=== PATIENT | female | born 1955 | race Caucasian/White ===

== ENCOUNTER 2016-05-05 16:01 | Emergency (ER) | payer BC ==
[2016-05-05 16:08] VITALS: RESP 18
[2016-05-05] MEDS ORDERED: HYDROcodone/APAP 5-325MG 1 EACH TAB PO STA (16:32)
--- NOTE | 2016-05-05 16:40 | XR ---
EXAMINATION TYPE: XR wrist limited LT DATE OF EXAM: 05/05/2016 4:35 PM CLINICAL HISTORY: Left wrist pain after fall injury. TECHNIQUE: Frontal and lateral images of the left wrist are obtained. COMPARISON: None FINDINGS: Osseous structures are demineralized. There is acute comminuted impacted intra-articular fr acture through distal radial meta-epiphysis. There is impaction and abnormal volar displacement of di stal fracture fragment. There is acute comminuted minimally displaced intra-articular fracture of the distal ulnar epiphysis. The carpal joint spaces are preserved. The overlying soft tissue appears un remarkable. IMPRESSION: There are acute comminuted fractures of distal radius and ulna with some displacement id entified. (Initial encounter close type post traumatic fracture)
[2016-05-05] MEDS ORDERED: MORPHINE SULFATE 4 MG/ML SYRINGE IVP STA (17:43)
[2016-05-05] MEDS ORDERED: BUPIVACAIN-EPI 0.5%-1:200,000 30 ML VIAL SQ ONE (17:45)
[2016-05-05] MEDS ORDERED: MORPHINE SULFATE 10 MG/ML SYRINGE IVP STA (17:47)
--- NOTE | 2016-05-05 19:14 | XR ---
EXAMINATION TYPE: XR wrist complete LT DATE OF EXAM: 05/05/2016 7:02 PM COMPARISON: NONE HISTORY: Post reduction TECHNIQUE: 2 views FINDINGS: There are transverse fractures of the distal radius and ulna. There is impaction of the rad ius fracture with posterior angulation on the lateral view of the distal radius. There is no dislocat ion. IMPRESSION: Distal radius and ulna fractures with mild angulation of the radius fracture. There is no t a significant change compared to the exam at 4:30 PM today. There is good apposition of the fragmen ts.
--- NOTE | 2016-05-05 19:47 | ED ---
Upper Extremity HPI - General Chief Complaint: Extremity Injury, Upper Stated Complaint: Fall/arm pain/lightheaded Time Seen by Provider: 05/05/16 16:13 Source: patient Mode of arrival: ambulatory Limitations: no limitations - History of Present Illness Initial Comments: 61-year-old female presented for evaluation of left wrist pain after falling from standing onto outstretched arms. She states that she was walking out of the building and was reading some papers when she tripped and fell forward. She stretched out her hands to catch her fall resulting in a popping sensation in her left forearm just proximal to the wrist. She denies hitting her head or injuring her neck or back. She was able to get back up to her feet on her own and walked home. She maintains sensation and motor function distal to the deformity. - Related Data Home Medications Medication Instructions Recorded Confirmed Diltiazem Cd [Cardizem Cd] 180 mg PO HS 11/28/13 05/05/16 Albuterol Sulfate [Proair Hfa] 2 puff INHALATION RT-QID PRN 12/25/14 05/05/16 Desvenlafaxine Succinate [Pristiq 100 mg PO HS 12/25/14 05/05/16 ER] Fexofenadine HCl [Selina Allergy] 180 mg PO DAILY 12/25/14 05/05/16 Montelukast [Singulair] 10 mg PO HS 12/25/14 05/05/16 traZODone HCL [Desyrel] 50 mg PO HS 12/25/14 05/05/16 Cholecalciferol [Vitamin D3] 2,000 unit PO DAILY 03/23/15 05/05/16 Fluticasone/Salmeterol [Advair 1 puff INHALATION RT-BID 03/23/15 05/05/16 250-50 Diskus] [place]-3 Fatty Acids/Fish Oil [Fish 1 cap PO DAILY 03/23/15 05/05/16 Oil 1,000 mg Softgel] Dicyclomine [Bentyl] 20 mg PO ACHS 05/05/16 05/05/16 Estradiol Cream [Estrace Cream 1 gm VAGINAL MOFR 05/05/16 05/05/16 0.01%] Nystatin [Nystop] 1 applic TOPICAL TID 05/05/16 05/05/16 SUMAtriptan SUCCINATE [Imitrex] 100 mg PO BID PRN 05/05/16 05/05/16 Triamcinolone 0.1% Cream [Kenalog] 1 applic TOPICAL BID 05/05/16 05/05/16 Previous Rx's Medication Instructions Recorded HYDROcodone/APAP 5-325MG [[place] 1 - 2 tab PO Q6HR PRN #14 tab 05/05/16 5-325] Ibuprofen [Motrin] 800 mg PO Q8HR PRN #20 tab 05/05/16 Allergies Allergy/AdvReac Type Severity Reaction Status Date / Time NARCOTICS AdvReac Nausea & Uncoded 05/05/16 16:24 Vomiting Review of Systems ROS Statement: Those systems with pertinent positive or pertinent negative responses have been documented in the HPI. ROS Other: All systems not noted in ROS Statement are negative. Constitutional: Denies: fever, chills Eyes: Denies: eye pain, eye discharge ENT: Denies: ear pain, throat pain Respiratory: Denies: cough, dyspnea Cardiovascular: Denies: chest pain, palpitations Endocrine: Denies: polydipsia, polyuria Gastrointestinal: Denies: abdominal pain, nausea, vomiting Genitourinary: Denies: urgency, dysuria Musculoskeletal: Reports: other (Pain and deformity to the left distal forearm/ wrist). Denies: back pain Skin: Reports: lesions (Abrasion to left distal forearm on the dorsal aspect). Denies: rash Neurological: Denies: headache, weakness Psychiatric: Denies: anxiety, depression Past Medical History Past Medical History: Asthma, Eye Disorder, Hyperlipidemia, Hypertension, Osteoarthritis (OA) Additional Past Medical History / Comment(s): ENVIRONMENTAL ALLERGIES, GETS WEEKLY INJ. HX CATARACTS. HX: migraine; IBS; varicose veins joel. LT KNEE STIFFNESS, SOME EDEMA - HAD TOTAL KNEE SURG 01/07/16 History of Any Multi-Drug Resistant Organisms: None Reported Past Surgical History: Adenoidectomy, Joint Replacement, Orthopedic Surgery, Tonsillectomy, Tubal Ligation Additional Past Surgical History / Comment(s): 01/06/15 Total L knee arthroplasty. Jaw Surgery; CATARACTS; ORIF rt wrist, left knee arthroscopy Past Anesthesia/Blood Transfusion Reactions: Postoperative Nausea & Vomiting ( PONV) Additional Past Anesthesia/Blood Transfusion Reaction / Comment(s): MOTHER HAD POSS PROB, UNSURE WHAT. Past Psychological History: Depression Additional Psychological History / Comment(s): Pt resides with her spouse. She is independent. She uses no assistive device. She drives. She is seeing a psychiatrist for her depression and is on medication-she feels these things are helping. Smoking Status: Never smoker Past Alcohol Use History: Occasional Past Drug Use History: None Reported - Past Family History Father Family Medical History: Cancer Mother Family Medical History: Cancer General Exam Limitations: no limitations General appearance: alert, in no apparent distress Head exam: Present: atraumatic, normocephalic Eye exam: Present: normal appearance, EOMI ENT exam: Present: normal exam, normal oropharynx Neck exam: Present: normal inspection. Absent: tenderness Respiratory exam: Present: normal lung sounds bilaterally. Absent: respiratory distress, wheezes Cardiovascular Exam: Present: normal rhythm, bradycardia GI/Abdominal exam: Present: soft. Absent: distended, tenderness Rectal exam: Present: deferred Extremities exam: Present: other (Deformity to the left distal forearm/wrist with volar displacement. Sensation, motor function, and pulse present distal to the injury capillary refill less than 3 seconds.) Back exam: Present: normal inspection, full ROM Neurological exam: Present: alert, oriented X3, normal gait Psychiatric exam: Present: normal affect, normal mood Skin exam: Present: warm, dry, other (Abrasion to left distal medial volar aspect of forearm) Course Vital Signs 05/05/16 05/05/16 16:05 20:08 Temperature 97.0 F L 97.9 F Pulse Rate 55 L 104 H Respiratory 18 18 Rate Blood Pressure 96/52 140/69 O2 Sat by Pulse 94 L 96 Oximetry Procedures - Nerve Block Consent Obtained: verbal consent Time Out Performed: Yes Local Anesthetic Used: MARCAINE 0.5% with EPI Amount of anesthesia used: 15 Side: left Nerve Blocks: hematoma block Procedure Successful: Yes Complications: none Patient Tolerated Procedure: well - Orthopedic Joint Reduction Joint #1 Consent Obtained: verbal consent Time Out Performed: Yes Side: left Joint Reduction Location: wrist Analgesia: hematoma block Local Anesthetic Used: other anesthetic (Marcaine) Amount of Anesthetic Used (mLs): 15 Technique Used: direct manipulation, other (Hanging finger traction) Post-Reduction Neuro Exam: intact Post-Reduction Vascular Exam: intact Post Reduction X-Ray Obtained: Yes Post Reduction X-Ray Results: other (Minimal-change appear to previous study) Splint Applied: Yes Patient Tolerated Procedure: well - Orthopedic Splinting/Casting Injury #1 Side: left Upper Extremity Injury Location: forearm, wrist Upper Extremity Immobilizer: volar splint Medical Decision Making - Medical Decision Making 61-year-old female presented for evaluation of left distal forearm/ wrist injury resulting in deformity. Motor, sensation, and pulse are intact distal to the injury with a palpable pulse. X-ray confirms a volar displaced radial and ulnar fracture. Discussed the patient with the on-call orthopedic surgeon who requested that an attempt be made to reduce the fracture and to have a splint with follow-up in the morning. He further stated that she would likely have surgical repair on Monday. Patient was given pain control as well as a hematoma block and arm was placed in a finger traction splint. There was improvement in the deformity with traction and while the arm was maintained in traction a volar splint was applied without complication. Repeat x-ray showed minimal improvement in displacement. The patient was given prescription for pain control and advised to call the orthopedic surgeon in the morning and schedule an appointment for the same day. She is further informed that she would likely have surgical repair on Monday. She was advised to return to this facility if her symptoms should worsen or persist. She acknowledged an understanding of this information and agreed with this plan of care. Disposition Clinical Impression: Distal radius fracture, left, Fracture of distal end of left ulna Disposition: HOME SELF-CARE Condition: Stable Instructions: Arm Fracture in Adults (ED) Additional Instructions: Please use medication as discussed. Please follow up with the provided orthopedic surgeon tomorrow morning after 8:30 AM. Please return to the emergency room if your symptoms increase or worsen or for any other concerns. Prescriptions: HYDROcodone/APAP 5-325MG [[place] 5-325] 1 - 2 tab PO Q6HR PRN #14 tab PRN Reason: Analgesia Ibuprofen [Motrin] 800 mg PO Q8HR PRN #20 tab PRN Reason: Analgesia Referrals: Daniela Manrique III, MD [Primary Care Provider] - 1-2 days Ray Caceres DO [Doctor of Osteopathic Medicine] - 1-2 days Time of Disposition: 19:47
[2016-05-05 20:11] VITALS: BP 140/69; PULSE 104; TEMP 97.9
== END 2016-05-05 20:26 | disposition home or self-care (01) ==
LOC: EC 16:01
DX: S52.502A Unspecified fracture of the lower end of left radius, initial encounter for closed fracture (principal); W01.0XXA Fall on same level from slipping, tripping and stumbling without subsequent striking against object, initial encounter; Y93.01 Activity, walking, marching and hiking; K58.9 Irritable bowel syndrome, unspecified; I10 Essential (primary) hypertension; E78.5 Hyperlipidemia, unspecified; J45.909 Unspecified asthma, uncomplicated; F32.9 Major depressive disorder, single episode, unspecified; Z79.890 Hormone replacement therapy; Z79.51 Long term (current) use of inhaled steroids; Z88.5 Allergy status to narcotic agent
CPT/HCPCS: 73100; 73110; 25605; 99283; 96374; J2270

== ENCOUNTER → 2016-05-06 | Outpatient (CLI) | payer BC ==
[2016-05-06 16:01] LABS: EKG EKG PERFORMED
[2016-05-06 16:27] LABS: Anion Gap 12 mmol/L; Carbon Dioxide 24 mmol/L (22-30); Chloride 105 mmol/L (98-107); Potassium 3.9 mmol/L (3.5-5.1); Sodium 141 mmol/L (137-145)
[2016-05-06 16:31] LABS: Basophils # (A) 0.1 k/uL (0-0.2); Basophils % (A) 1 %; CH 29.9; CHCM 33.1; Eosinophils # (A) 0.1 k/uL (0-0.7); Eosinophils % (A) 1 %; HCT 41.9 % (34.0-46.0); HDW 2.27; HGB 13.7 gm/dL (11.4-16.0); Luc # (Auto) 0.14; Luc % (Auto) 1; Lymphocytes # (A) 1.5 k/uL (1.0-4.8); Lymphocytes % (A) 16 %; MCH 29.8 pg (25.0-35.0); MCHC 32.8 g/dL (31.0-37.0); MCV 90.8 fL (80.0-100.0); Mean Platelet Volume 8.8; Monocytes # (A) 0.4 k/uL (0-1.0); Monocytes % (A) 4 %; Neutrophils # (A) 7.5 k/uL (1.3-7.7); Neutrophils % (A) 77 %; RBC 4.61 m/uL (3.80-5.40); RDW 13.1 % (11.5-15.5); WBC 9.7 k/uL (3.8-10.6); WBC (Perox) 9.83
== END | disposition home or self-care (01) ==
LOC: LABPAT 15:35
PROVIDERS: ATTEND Orthopaedic Surgery
DX: Z01.810 Encounter for preprocedural cardiovascular examination (principal); S52.572D Other intraarticular fracture of lower end of left radius, subsequent encounter for closed fracture with routine healing
CPT/HCPCS: 80051; 85025; 93005

== ENCOUNTER 2016-05-09 13:44 | Day surgery (SDC) | payer BC ==
--- NOTE | 2016-05-09 11:57 | HP ---
DATE OF ADMISSION: CHIEF COMPLAINT: Left wrist pain. HISTORY OF PRESENT ILLNESS: The patient is a 61-year-old female who presents after falling on 05/05/2016 in front of a [place] [place] store landing on her left arm. She initially was seen in the emergency room and underwent provisional closed reduction of her left wrist fracture and was placed into a splint. She denies previous problems or injury. PAST MEDICAL HISTORY: Significant for asthma, and arthritis. PAST SURGICAL HISTORY: Significant for sinus surgery, tubal ligation and left knee arthroscopy with subsequent total knee arthroplasty. CURRENT MEDICATIONS: Ibuprofen. She denies drug allergies. FAMILY HISTORY: Significant for cancer. SOCIAL HISTORY: Negative for current tobacco or alcohol use. Sixteen-point review of systems otherwise reviewed and is noncontributory. On examination, the patient is approximately 5 feet 4 inches, 170 pounds of mesomorphic habitus. HEENT exam is nonfocal. Neck is supple. She is nontender about the left shoulder and elbow. On examination of her left wrist, she has moderate swelling and ecchymosis. She has volar deformity. She is tender over the distal radius and ulna. Her distal neurovascular exam appears be intact in the left digits. She has moderate digital stiffness and swelling. X-rays obtained in the hospital of the left wrist show an intra-articular distal radius fracture with volar displacement along with an ulnar neck/styloid fracture that is mildly displaced. IMPRESSION: Left distal radius and ulnar neck/styloid fractures. RECOMMENDATIONS: I talked to the patient regarding her treatment options. With this fracture pattern and initial displacement I would recommend proceeding with surgery. We will plan to proceed with open reduction and internal fixation. We will likely keep the patient for a 23 hour hold postoperatively.
[~2016-05-09 13:44] MED LIST: ceFAZolin 2 GM in SODIUM CHLORIDE 0.9% 100 ML IVPB ONE
[2016-05-09] MEDS ORDERED: DEXAMETHASONE SOD PHOSPHATE 10 MG/ML 1 ML VIAL IV ONE (14:15)
[2016-05-09] MEDS ORDERED: HYDROmorphone 1 MG/ML 1 ML SYRINGE IVP PRN ×2 (14:15→19:20)
[2016-05-09] MEDS ORDERED: LACTATED RINGERS 1,000 ML IV ONE (14:15)
[2016-05-09] MEDS ORDERED: MIDAZOLAM 2 MG/2 ML VIAL IV PRN (14:15)
[2016-05-09] MEDS ORDERED: LIDOCAINE 1% 20 ML VIAL (10MG/ML) FOR IV START INTRADERMA PRN (14:15)
[2016-05-09] MEDS ORDERED: SCOPOLAMINE 1.5MG/72HR PATCH TRANSDERM ONE (14:15)
[2016-05-09] MEDS ORDERED: ONDANSETRON 4 MG/2 ML VIAL IVP ONE (14:15)
[2016-05-09] MEDS ORDERED: LIDOCAINE 1% 20 ML VIAL (10MG/ML) FOR IV START INTRADERMA ONE (14:26)
[2016-05-09] MEDS ORDERED: fentaNYL (PF) 50 MCG/ML 2 ML AMP ONE (17:57)
[2016-05-09] MEDS ORDERED: SUCCINYLCHOLINE CHLORIDE 100 MG/5 ML SYR IV ONE (17:57)
[2016-05-09] MEDS ORDERED: PROPOFOL 10 MG/ML 20 ML VIAL IV ONE (17:57)
[2016-05-09] MEDS ORDERED: LABETALOL 5 MG/ML VIAL MDV ONE (17:57)
[2016-05-09] MEDS ORDERED: MIDAZOLAM 2 MG/2 ML VIAL ONE (17:57)
[2016-05-09] MEDS ORDERED: HYDROmorphone (PF) 1 MG/ML ONE (17:57)
[2016-05-09] MEDS ORDERED: LIDOCAINE 1% INJ 10MG/ML (20 ML MDV) ONE (17:57)
[2016-05-09] MEDS ORDERED: ceFAZolin 1,000 MG in SODIUM CHLORIDE 0.9% 1,000 ML IRRIGATION ONE (18:32)
[2016-05-09] MEDS ORDERED: ONDANSETRON 4 MG/2 ML VIAL IVP PRN (19:20)
[2016-05-09] MEDS ORDERED: HYDROcodone/APAP 5-325MG 1 EACH TAB PO PRN (19:20)
--- NOTE | 2016-05-09 19:22 | P.OP ---
Date of Procedure: 05/09/16 Preoperative Diagnosis: Displaced left intra-articular distal radius fracture Postoperative Diagnosis: Same Procedure(s) Performed: Open reduction and internal fixation left intra-articular distal radius fracture Implants: [place] 3-hole volar distal radial plate Anesthesia: CLYDE Surgeon: Chris Urias Weld Technician #1: Reilly Diez Estimated Blood Loss (ml): 10 Pathology: none sent Condition: stable Disposition: PACU Indications for Procedure: The patient's 61-year-old female presents after falling injuring her left wrist. Upon evaluation she was noted have a closed volarly displaced intra- articular left distal radius fracture. A discussion of the risks and benefits of operative intervention was made with patient. She opted to proceed with surgery. Operative risks to include infection, neurovascular injury, development of blood clots, possible development of malunion, possible development of nonunion, possible need for subsequent procedures was discussed. Informed consent was obtained. Operative Findings: As below Description of Procedure: The patient was brought to the operating room, and after induction of general anesthesia the left upper extremity was prepped and draped in normal fashion. The tourniquet was inflated to 250 mmHg. A longitudinal incision extending 6 cm was then made starting at the volar wrist crease in line with the flexor carpi radialis extending proximally. The skin was incised sharply. Subcu tissues were divided bluntly. Electrocautery was used for hemostasis. The flexor carpi radialis sheath was opened and the tendon retracted ulnarly. The radial artery was gently retracted radially. The underlying fascia was opened. The palmaris brevis was elevated off the volar distal radius. The fracture site was identified and cleaned of clot and debris. The fracture was then provisionally reduced with longitudinal traction and manipulation. A 3 hole volar plate was then placed. It was attached proximally provisionally with an olive wire. Fluoroscopy was used to check the adequacy reduction and placement of the implant. A 2.4 mm cortical screw was placed proximally in the slotted hole. The proximal and distal rows were then filled with smooth pegs of the appropriate length. This was again was done with the aid of fluoroscopy. The remaining cortical screw holes were filled with the appropriate length screws. Final fluoroscopic views to include PA, AP, and elevated lateral view showed adequate reduction of the fracture and yarsanism of volar tilt. The wound was irrigated normal saline. The subcutaneous tissues reapproximated interrupted 3-0 Vicryl sutures. The skin was reapproximated with 4-0 subcuticular Prolene suture. Steri-Strips were applied. A sterile dressing was applied in addition to a volar splint. The tourniquet was deflated with less than 1 hour total tourniquet time. The patient was awoken from general anesthesia and transferred to recovery room in good condition. Blood loss was estimated at 10 mL. No complications were incurred. Sponge and needle counts were correct in the case.
[2016-05-09] MEDS: HYDROcodone/APAP 5-325MG 1 EACH TAB PO PRN (20:13)
[2016-05-09 21:00] VITALS: BMI 27.4
[2016-05-09] MEDS: ceFAZolin 2 GM in SODIUM CHLORIDE 0.9% 100 ML IVPB SCH (23:56)
[2016-05-10] MEDS ORDERED: ceFAZolin 2 GM in SODIUM CHLORIDE 0.9% 100 ML IVPB ONE (05:00)
[2016-05-10] MEDS: HYDROcodone/APAP 5-325MG 1 EACH TAB PO PRN (06:03)
[2016-05-10 07:47] VITALS: BP 137/67; PULSE 108; RESP 18; TEMP 98.6
[2016-05-10] MEDS: ceFAZolin 2 GM in SODIUM CHLORIDE 0.9% 100 ML IVPB SCH (08:13)
--- NOTE | 2016-05-10 09:11 | FL ---
EXAMINATION TYPE: FL guidance operating room DATE OF EXAM: 05/09/2016 7:21 PM HISTORY: Flouroscopy time 40 seconds of fluoroscopy provided. IMPRESSION: 1. Fluoroscopy time.
--- NOTE | 2016-05-10 10:17 | XR ---
EXAMINATION TYPE: XR wrist limited LT DATE OF EXAM: 05/09/2016 7:21 PM COMPARISON: 05/05/2016 HISTORY: Postoperative change TECHNIQUE: One view submitted FINDINGS: Postsurgical change appears in near-anatomic alignment. IMPRESSION: Postoperative change
--- NOTE | 2016-05-10 10:43 | P.DS ---
Providers Date of admission: 05/09/2016 Expected date of discharge: 05/10/16 Attending physician: Chris Urias Primary care physician: Stated None Hospital Course: Date of admission: 05/09/2016 Date of discharge: 05/10/2016 Admission diagnosis: Status post ORIF left distal radius fracture Discharge diagnosis: Same Attending physician: Dr. Urias Surgical procedures: ORIF left distal radius fracture Brief history: Patient is a 61-year-old female who was seen and evaluated in the outpatient setting by Dr. Urias with regards to the left distal radius fracture. It was determined that surgical fixation would be the best option for treatment, she was scheduled for an ORIF procedure on 05/09/2016 Hospital course: Details of patient's surgery can be found in operative report. Patient tolerated the procedure well and was subsequently transported to orthopedic floor. Patient's orthopeidc and medical care was provided daily. Patient had daily laboratory tests performed for evaluation of overall blood counts. Patient was treated with aspirin for their postoperative DVT prophylaxis during their inpatient stay. Patient was noted to have a relatively uneventful postoperative course. Patient reported satisfactory pain control with oral pain medications by postoperative day 0. Patient showed satisfactory progress with physical therapy. Patient moved steadily through the program and had no difficulty meeting the goals by postoperative day 1. Given patient's otherwise satisfactory course and having met physical therapy goals, plan is to discharge patient home on postoperative day 1. Discharge condition/disposition: Patient will be discharged home in stable condition. Discharge medications: Instructions are given on resumption of patient's normal daily medications per primary care recommendation, in addition patient will be prescribed [place] 5 mg/325 mg. Discharge instructions: 1. Keep splint clean and dry, do not remove. Please keep covered while showering 2 nonweightbearing left upper extremity, use arm sling as needed. 3. Ice and elevate when necessary. Do not exceed 20 minutes per hour with ice pack. 4. Utilize compression sleeve until seen at first follow up appointment. 5. Pain meds and anticoagulants per prescription. 6. Pain medication has potential to cause constipation. Increase oral fluid and fiber intake. Contact primary care provider if you have not had a bowel movement within 48 hours after discharge 7. Follow up in office at 2 weeks postop with Arnulfo Diez PA-C 8. Follow up with your primary care doctor 7-10 days after discharge. 9. Contact [facility] with any questions, . Procedures: ORIF left distal radius fracture Patient Condition at Discharge: Good Plan - Discharge Summary New Discharge Prescriptions: Hydrocodone/Acetaminophen [[place] 5-325] 1 - 2 each PO Q6HR PRN #30 tab PRN Reason: Pain Discharge Medication List Diltiazem Cd [Cardizem Cd] 180 mg PO HS 11/28/13 [History] Albuterol Sulfate [Proair Hfa] 2 puff INHALATION RT-QID PRN 12/25/14 [History] Desvenlafaxine Succinate [Pristiq ER] 100 mg PO HS 12/25/14 [History] Fexofenadine HCl [Selina Allergy] 180 mg PO DAILY 12/25/14 [History] Montelukast [Singulair] 10 mg PO HS 12/25/14 [History] traZODone HCL [Desyrel] 50 mg PO HS 12/25/14 [History] Cholecalciferol [Vitamin D3] 2,000 unit PO DAILY 03/23/15 [History] Fluticasone/Salmeterol [Advair 250-50 Diskus] 1 puff INHALATION RT-BID 03/23/15 [History] [place]-3 Fatty Acids/Fish Oil [Fish Oil 1,000 mg Softgel] 1 cap PO DAILY [History] Dicyclomine [Bentyl] 20 mg PO ACHS 05/05/16 [History] Estradiol Cream [Estrace Cream 0.01%] 1 gm VAGINAL MOFR 05/05/16 [History] HYDROcodone/APAP 5-325MG [[place] 5-325] 1 - 2 tab PO Q6HR PRN #14 tab 05/05/16 [ Rx] Ibuprofen [Motrin] 800 mg PO Q8HR PRN #20 tab 05/05/16 [Rx] Nystatin [Nystop] 1 applic TOPICAL TID 05/05/16 [History] SUMAtriptan SUCCINATE [Imitrex] 100 mg PO BID PRN 05/05/16 [History] Triamcinolone 0.1% Cream [Kenalog] 1 applic TOPICAL BID 05/05/16 [History] Hydrocodone/Acetaminophen [[place] 5-325] 1 - 2 each PO Q6HR PRN #30 tab 05/10/16 [Rx] Follow up Appointment(s)/Referral(s): Branch,Reilly M, MARGIE [PHYSICIAN TRAVEL ADMINISTRATOR] - 05/27/16 1:30 pm Patient Instructions/Handouts: ORIF of an Arm Fracture (DC) Discharge Disposition: HOME SELF-CARE
--- NOTE | 2016-05-10 10:44 | P.PN ---
Subjective Principal diagnosis: s/p ORIF left distal radius fracture Patient doing well today, no complaints. Denies chest pain, shortness of breath , fever or chills. Objective - Vital Signs Vital signs: Vital Signs Temp 98.6 F 05/10/16 07:46 Pulse 108 H 05/10/16 07:46 Resp 18 05/10/16 07:46 BP 137/67 05/10/16 07:46 Pulse Ox 93 L 05/10/16 07:46 Intake & Output 05/09/16 05/10/16 05/10/16 18:59 06:59 18:59 Intake Total 501 0 240 Output Total 5 Balance 501 -5 240 Weight 72.575 kg 72.575 kg Intake: IV 501 0 Oral 240 Output: Estimated Blood Loss 5 Other: Voiding Method Toilet # Voids 1 1 - Exam Left upper extremity: Splint in good position. Sensation to all digits intact, cap refill is less then 2 seconds. Assessment and Plan Plan: Assessment: 1. Post op day #1 s/p ORIF left distal radius fracture Plan: 1. Pain control, she will be discharged home on [place] 5mg/325 2. Non weightbearing left upper extremity 3. Utilize arm sling as needed 4. Follow up at [facility] in 2 weeks Time with Patient: Less than 30
== END 2016-05-10 12:33 | disposition home or self-care (01) ==
LOC: OR 13:44 → 3OBS 19:17 → OR 05-10 12:33
PROVIDERS: ATTEND Orthopaedic Surgery
DX: S52.572A Other intraarticular fracture of lower end of left radius, initial encounter for closed fracture (principal); S52.512A Displaced fracture of left radial styloid process, initial encounter for closed fracture; W19.XXXA Unspecified fall, initial encounter; Y92.512 Supermarket, store or market as the place of occurrence of the external cause; J45.909 Unspecified asthma, uncomplicated; M19.90 Unspecified osteoarthritis, unspecified site; I10 Essential (primary) hypertension; E78.5 Hyperlipidemia, unspecified; F39 Unspecified mood [affective] disorder; Z79.1 Long term (current) use of non-steroidal anti-inflammatories (NSAID); Z79.891 Long term (current) use of opiate analgesic; Z79.51 Long term (current) use of inhaled steroids; Z79.899 Other long term (current) drug therapy
CPT/HCPCS: 73100; 25608; C1713; J1100; J0690 ×3; J2405

== ENCOUNTER 2016-11-02 08:55 | Day surgery (SDC) | payer BC ==
[2016-10-26 15:36] VITALS: BMI 27.9
[~2016-11-02 08:55] MED LIST changes: +LACTATED RINGERS 1,000 ML IV SCH; +TETRACAINE 0.5% OPHTH (PF) DROPS 4 ML BTL OP NR; -ceFAZolin 2 GM in SODIUM CHLORIDE 0.9% 100 ML IVPB ONE
[2016-11-02] MEDS: PILOCARPINE 2% OPHTH DROPS 15 ML BTL OP SCH ×3 (11:05→11:25)
[2016-11-02 11:34] VITALS: RESP 16; TEMP 97.2
[2016-11-02] MEDS ORDERED: ONDANSETRON 4 MG/2 ML VIAL IVP ONE (11:34)
[2016-11-02] MEDS ORDERED: fentaNYL (PF) 50 MCG/ML 2 ML AMP ONE (12:52)
[2016-11-02] MEDS ORDERED: MIDAZOLAM 2 MG/2 ML VIAL ONE (12:52)
[2016-11-02] MEDS ORDERED: diphenhydrAMINE 50 MG/ML 1 ML VIAL ONE (12:52)
[2016-11-02] MEDS ORDERED: PROPOFOL 10 MG/ML 20 ML VIAL IV ONE (12:52)
[2016-11-02] MEDS ORDERED: LACTATED RINGERS 1,000 ML IV ONE (13:00)
[2016-11-02] MEDS ORDERED: LIDOCAINE 1% (PF) 10MG/ML VIAL MISCELLANE ONE (13:16)
[2016-11-02] MEDS ORDERED: BALANCED SALT IRRIG SOLN COMB2 15 ML IRRIG.SOLN IRRIGATION ONE (13:16)
[2016-11-02] MEDS ORDERED: MOXIFLOXACIN HCL 0.5% DROPS 3 ML BTL LEFT EYE ONE (13:18)
[2016-11-02] MEDS ORDERED: TRYPAN BLUE 0.06% SYRINGE 0.5 ML SYRINGE INTRAOCULA ONE (13:24)
[2016-11-02] MEDS ORDERED: BALANCED SALT IRRIG SOLN COMB2 500 ML IRRIGATION ONE (13:26)
--- NOTE | 2016-11-02 14:10 | P.OP ---
Date of Procedure: 11/02/16 Preoperative Diagnosis: Fuch's dystrophy Postoperative Diagnosis: same Procedure(s) Performed: DMEK Implants: endothelial tissue, [id number] Anesthesia: MAC Surgeon: Eddie Phillips Estimated Blood Loss (ml): 0 Pathology: none sent Condition: stable Indications for Procedure: Fuch's dystrophy and progressive blurring Operative Findings: no comlpications Description of Procedure:
[2016-11-02 15:05] VITALS: BP 131/64; PULSE 85
[2016-11-02] MEDS ORDERED: IV FLUID CONTINUATION 1,000 ML IV ONE (15:33)
--- NOTE | 2016-11-03 19:46 | OP ---
DATE OF SURGERY: 11/02/2016 PROCEDURE: Descemet's membrane and endothelial keratoplasty of the left eye. PREOPERATIVE DIAGNOSIS: Fuchs endothelial corneal dystrophy. POSTOPERATIVE DIAGNOSIS: Fuchs endothelial corneal dystrophy. SURGEON: Dr. Eddie Phillips ANESTHESIA: Topical. ESTIMATED BLOOD LOSS: None. SPECIMEN TAKEN: None. NARRATIVE: After initial preparation of donor tissue identified as [id number], which was a 7.5 mm diameter donor which was pre-loaded in a modified Cristina tube. The patient was brought to the operating room, placed under cardiac monitoring, and was prepped and draped in the usual sterile manner. She was approached from her left temporal side and 3 paracenteses using a 1.1 mm MVR blade were performed on the corneal limbus. At the 3 o'clock a 2.8 mm keratome was used to create a self-sealing corneal flap incision and an additional modified Cristina tube was used to confirm the ability of the tip of the modified Cristina tube to be able to enter into the anterior chamber. Xylocaine 1% MPF 50:50 mixed with balanced salt solution was also injected into the anterior chamber. At this point, the chamber depth was reduced, and trypan blue was used to stain the tissues of the anterior chamber for 2 minutes. After the specified time, the trypan was irrigated away and air was used to deepen the anterior chamber. Descemet's stripping of the eye was accomplished using the reverse Sinskey hook following the outline of the 8 mm keratome which had been placed earlier in the case on the patient's eye. Scoring of the tissue was accomplished following the circular path. Due to a consistent rocking of the eye back and forth, there was difficulty encountered during the stripping of the Descemet's membrane. Therefore Amvisc was instilled into the anterior chamber to stabilize and maintain the chamber depth to complete the removal of the patient's own membrane from the anterior chamber. This was confirmed by closer examination when removed from the patient's eye. At this point, irrigation and aspiration was introduced to remove all remnants of viscoelastic in the anterior chamber. The previously prepared Descemet's membrane was then brought to the field, and controlling chamber depth, the donor tissue was then introduced into the patient's eye with minimal difficulty. A single 10-0 nylon suture in an X fashion was used to secure the temporal incision. At this point, varying amounts of balanced salt solution were used to regulate the depth of the anterior chamber so as to permit appropriate manipulation of the Descemet's membrane within the patient's eye. Once the tissue was finally centered in the previously opened bed, sulfur hexafluoride of 20% concentration was then introduced beneath the membrane to buoy it up against the patient's own cornea. A full fill of SF6 was maintained in the chamber for 3 minutes. This was followed by partial removal of the gas and filling of the chamber with balanced salt solution for an additional 10 minutes. Once this was accomplished for the sufficient of time and confirmation that the tissue was adequately in proper position, she then received 2 drops of moxifloxacin and was shielded. The patient at this point was then returned to the recovery area in good condition and remained there for at least an hour prior to confirmation and discharge that the Descemet's membrane had not become dislocated. ZOHAIB
== END 2016-11-02 15:55 | disposition home or self-care (01) ==
LOC: OR 08:55
PROVIDERS: ATTEND Ophthalmology
DX: H18.51 Endothelial corneal dystrophy (principal); Z96.1 Presence of intraocular lens; H04.123 Dry eye syndrome of bilateral lacrimal glands; H52.221 Regular astigmatism, right eye; H52.13 Myopia, bilateral; F32.9 Major depressive disorder, single episode, unspecified; I10 Essential (primary) hypertension; J45.909 Unspecified asthma, uncomplicated; G43.909 Migraine, unspecified, not intractable, without status migrainosus; Z79.82 Long term (current) use of aspirin; Z79.899 Other long term (current) drug therapy
CPT/HCPCS: 87070; 87205; 87075; 65756; V2785; J2250; J1200; J2405; J3010; J2001; J2704

== ENCOUNTER 2017-02-22 11:28 | Day surgery (SDC) | payer BC ==
[2017-02-17 14:34] VITALS: BMI 27.4
--- NOTE | 2017-02-22 08:26 | P.OP ---
Date of Procedure: 02/22/17 Preoperative Diagnosis: NS & CS & POAG Postoperative Diagnosis: same Procedure(s) Performed: PIOL & iStent implantation Implants: PCB00 22.00 & [id number] Anesthesia: MAC Surgeon: Eddie Phillips Estimated Blood Loss (ml): 0 Pathology: none sent Condition: stable Disposition: same day Indications for Procedure: blurry vision & glaucoma moderate stage Operative Findings: No complications
[~2017-02-22 11:28] MED LIST changes: +LIDOCAINE 1% 20 ML VIAL (10MG/ML) FOR IV START INTRADERMA PRN; -TETRACAINE 0.5% OPHTH (PF) DROPS 4 ML BTL OP NR
[2017-02-22 13:22] VITALS: TEMP 98.1
[2017-02-22] MEDS: PILOCARPINE 2% OPHTH DROPS 15 ML BTL OP SCH ×3 (13:52→14:02)
[2017-02-22] MEDS ORDERED: LABETALOL 5 MG/ML VIAL MDV ONE (16:07)
[2017-02-22] MEDS ORDERED: MIDAZOLAM 2 MG/2 ML VIAL ONE (16:07)
[2017-02-22] MEDS ORDERED: fentaNYL (PF) 50 MCG/ML 2 ML AMP ONE (16:07)
[2017-02-22] MEDS ORDERED: diphenhydrAMINE 50 MG/ML 1 ML VIAL ONE (16:07)
[2017-02-22] MEDS ORDERED: BALANCED SALT IRRIG SOLN COMB2 500 ML IRRIGATION ONE (16:33)
[2017-02-22] MEDS ORDERED: BALANCED SALT IRRIG SOLN COMB2 15 ML IRRIG.SOLN IRRIGATION ONE (16:33)
[2017-02-22] MEDS ORDERED: TRYPAN BLUE 0.06% SYRINGE 0.5 ML SYRINGE MISCELLANE ONE (16:34)
[2017-02-22] MEDS ORDERED: LIDOCAINE 1% (PF) 10MG/ML VIAL MISCELLANE ONE (16:35)
[2017-02-22] MEDS ORDERED: HYALURONATE SODIUM INTRAOCULAR 1 EACH SYRINGE (12MG/ML) INTRAOCULA ONE (16:36)
[2017-02-22] MEDS ORDERED: TETRACAINE 0.5% OPHTH (PF) DROPS 4 ML BTL RIGHT EYE ONE (16:41)
[2017-02-22] MEDS ORDERED: TIMOLOL 0.5% OPHTH SOLN (PF) 0.2 ML DROPERETTE RIGHT EYE ONE (16:42)
[2017-02-22] MEDS ORDERED: MOXIFLOXACIN HCL 0.5% DROPS 3 ML BTL RIGHT EYE ONE (16:43)
[2017-02-22] MEDS ORDERED: SODIUM CHLORIDE 0.9% 500 ML IV ONE (16:47)
--- NOTE | 2017-02-22 17:34 | P.OP ---
Date of Procedure: 02/22/17 Preoperative Diagnosis: Fuch's corneal dystrophy Postoperative Diagnosis: same Procedure(s) Performed: DMEK, OD Implants: none Anesthesia: MAC Surgeon: Eddie Phillips Estimated Blood Loss (ml): 0 Pathology: none sent Condition: stable Disposition: same day Indications for Procedure: Blurry vision, corneal edema Operative Findings: No complications
[2017-02-22 17:43] VITALS: RESP 18
[2017-02-22 18:21] VITALS: BP 123/76; PULSE 90
--- NOTE | 2017-02-22 20:51 | OP ---
OPERATIVE REPORT DATE OF SURGERY: February 22, 2017. PROCEDURE: Descemet membrane endothelial keratoplasty of the right eye. PREOPERATIVE DIAGNOSES: Fuchs corneal dystrophy with corneal edema. POSTOPERATIVE DIAGNOSES: Fuchs corneal dystrophy with corneal edema. SURGEON: Dr. Eddie Phillips. ANESTHESIA: Topical. ESTIMATED BLOOD LOSS: Is none. SPECIMEN: Taken none. NARRATIVE: After obtaining the appropriate consent, preparation of the tissue identified as [id number], was brought to the back table and prepared attaching the Cristina tube to a syringe containing balanced salt solution. Additionally in SF6 was prepared at a 20% mixture with air. The patient was then brought to the room. A paracentesis at the 11 o'clock position using the MVR blade was created through this opening. 1% Xylocaine MPF 50 50 mix with balanced salt solution was injected into the anterior chamber. This was followed by stabilization of the anterior chamber with Amvisc. An 8 mm corneal keratome was inked with gentian madai and placed centrally on the patient's cornea to identify the area of planned membrane stripping. Through a 2.8 mm temporal incision the Salcedo Sinskey hook was used to outline the area intended to be stripped bare of Descemet's membrane and Descemet's stripping tool was used to remove the central tissue in its entirety. Two additional paracenteses at 3 o'clock and 7 o'clock were created and the temporal incision was enlarged slightly to ensure that the Cristina tube would fit adequately into the anterior chamber. The previously prepared donor tissue was brought to the field and the tissue was injected into the anterior chamber. A single 10-0 nylon suture in an X fashion was used to close the temporal incision. Using varying amounts of balanced salt solution in the anterior chamber, the corneal tissue was manipulated in such a way as to best center the tissue with its proper orientation which was noted using the previously placed Esmarch on the donor tissue. Once the tissue was appropriately centered, the SF6 solution was injected through 1 of the paracenteses buoying the corneal donor tissue against the patient's corneal stroma. The large gas bubble was left in place for 20 minutes. During this time, the patient lost no awareness of the microscope light. At the end of the 20 minute duration balanced salt solution was used to exchange for a large portion of the SF6 air bubble and approximately 40% gas bubble remained in the anterior chamber. She was then given 2 drops of moxifloxacin as well as 2 drops of 0.5% timolol. She was shielded and returned to the recovery area in good condition where she will remain for approximately an additional 45 minutes to an hour with confirmation that the donor tissue has not moved from the planned implantation site. AILYN / LIANA: [id number] /
--- NOTE | 2017-02-27 10:12 | CDI ---
Documentation Clarification Form Date: 03/01/2017 CDS/Campaign Analyst Name: Mindy Woodwardestuardo Campaign Analyst Phone: If any questions, call Asiya Frye, Shirt Sorter at [phone] Patient Name: Omar Joshua Admit Date: 02/22/17 Discharge Date: 02/22/17 ATTENTION: The Clinical Documentation Specialists (CDI) and [facility] Coding Staff appreciate your assistance in clarifying documentation. Please respond to the clarification below the line at the bottom and electronically sign. The CDI & [facility] Coding staff will review the response and follow-up if needed. Please note: Queries are made part of the Legal Health Record. If you have any questions, please contact the author of this message via ITS. Dr. Phillips, One of the Operative Notes states that the patient has blurry vision & glaucoma , and that a PIOL & iStent implantation was performed. However, there are no operative details. Was this procedure performed? The previous query requested that you do an addendum to your operative note. But as of 02/27/17, this new clarification form enables you to document your clarification response on this form below the line and electronically sign and submit it (instead of doing an addendum) The currently signed document was incorrect. The diagnosis and procedure as noted in the operative report is correct. As the Operative Note is not really the definitive procedure or document, I would request that it be struck. I feel that any addendum to that note does not add any worthwhile information to the Operative Report or procedure performed. the Operative Note was a misselection of the click box on the list of patients on the day of surgery. ZOHAIB
== END 2017-02-22 19:03 | disposition home or self-care (01) ==
LOC: OR 11:28
PROVIDERS: ATTEND Ophthalmology
DX: H18.51 Endothelial corneal dystrophy (principal); Z96.1 Presence of intraocular lens; H04.123 Dry eye syndrome of bilateral lacrimal glands; H52.221 Regular astigmatism, right eye; H52.13 Myopia, bilateral; Z94.7 Corneal transplant status; J45.909 Unspecified asthma, uncomplicated; F32.9 Major depressive disorder, single episode, unspecified; K58.9 Irritable bowel syndrome, unspecified; G43.909 Migraine, unspecified, not intractable, without status migrainosus; I10 Essential (primary) hypertension; E78.5 Hyperlipidemia, unspecified; Z79.82 Long term (current) use of aspirin; Z79.899 Other long term (current) drug therapy; Z79.51 Long term (current) use of inhaled steroids
CPT/HCPCS: 65756; 87070; 87205; 87075; V2785; J2250; J1200; J3010; J2001

== ENCOUNTER → 2017-04-03 | Outpatient (CLI) | payer BC ==
--- NOTE | 2017-04-05 06:41 | MM ---
Reason for exam: screening (asymptomatic). Last mammogram was performed 10 years and 2 months ago. History: Patient is postmenopausal. Family history of breast cancer in mother at age 65. Benign right mammotome panel of the right breast, July 10, 2006. Took estrogen for 1 year 6 months beginning at age 46. Took progesterone for 1 year 6 months beginning at age 46. Physical Findings: A clinical breast exam by your physician is recommended on an annual basis and results should be correlated with mammographic findings. MG Screening Mammo w CAD Bilateral CC, MLO, and XCCM view(s) were taken. Prior study comparison: March 11, 2016, mammogram, performed at [facility]. March 09, 2015, mammogram, performed at [facility]. There are scattered fibroglandular densities. No suspicious abnormality. No significant changes when compared with prior studies. ASSESSMENT: Negative, BI-RAD 1 RECOMMENDATION: Routine screening mammogram of both breasts in 1 year.
== END | disposition home or self-care (01) ==
LOC: RADMAMWWP 11:25
PROVIDERS: ATTEND Family Medicine
DX: Z12.31 Encounter for screening mammogram for malignant neoplasm of breast (principal)
CPT/HCPCS: 77067

== ENCOUNTER → 2017-10-16 | Outpatient (CLI) | payer BC ==
--- NOTE | 2017-10-17 08:26 | USB ---
Reason for exam: clinical finding. History: Patient is postmenopausal. Family history of breast cancer in mother at age 65. Benign right mammotome panel of the right breast, July 10, 2006. Took estrogen for 1 year 6 months beginning at age 46. Took progesterone for 1 year 6 months beginning at age 46. Indicated problem(s): palpable abnormality in the right breast. Physical Findings: Nurse Summary: 0.5cm x 2 (nurse dw). US Breast RT Right complete breast ultrasound includes all four quadrants, the retroareolar region and axilla. Finding demonstrates no cystic or solid lesion seen. These results were verbally communicated with the patient and result sheet given to the patient on 10/16/17. ASSESSMENT: Negative, BI-RAD 1 RECOMMENDATION: Return to routine screening mammogram schedule for both breasts. Back on schedule. Manage on a clinical basis with regard to any suspicious palpable abnormality.
== END | disposition home or self-care (01) ==
LOC: RADUSWWP 14:51
PROVIDERS: ATTEND Family Medicine
DX: N63.10 Unspecified lump in the right breast, unspecified quadrant (principal)

== ENCOUNTER → 2018-05-28 | Outpatient (CLI) | payer BC ==
--- NOTE | 2018-05-29 11:50 | MM ---
Reason for exam: screening (asymptomatic). Last mammogram was performed 1 year and 2 months ago. History: Patient is postmenopausal. Family history of breast cancer in mother at age 65. Benign right mammotome panel of the right breast, July 10, 2006. Took estrogen for 1 year 6 months beginning at age 46. Took progesterone for 1 year 6 months beginning at age 46. Physical Findings: A clinical breast exam by your physician is recommended on an annual basis and results should be correlated with mammographic findings. MG 3D Screening Mammo W/Cad Bilateral CC and MLO view(s) were taken. Prior study comparison: April 03, 2017, bilateral MG screening mammo w CAD. March 11, 2016, mammogram, performed at [facility]. The breast tissue is heterogeneously dense. This may lower the sensitivity of mammography. Left upper outer quadrant anterior depth mass appears smaller than on the prior. Benign appearing bilateral calcifications. No suspicious abnormality. ASSESSMENT: Benign, BI-RAD 2 RECOMMENDATION: Routine screening mammogram of both breasts in 1 year.
== END | disposition home or self-care (01) ==
LOC: RADMAMWWP 07:52
PROVIDERS: ATTEND Family Medicine
DX: Z12.31 Encounter for screening mammogram for malignant neoplasm of breast (principal); Z80.3 Family history of malignant neoplasm of breast; Z90.12 Acquired absence of left breast and nipple
CPT/HCPCS: 77063; 77067

== ENCOUNTER → 2018-10-10 | Outpatient (CLI) | payer BC ==
--- NOTE | 2018-10-11 08:42 | BD ---
EXAMINATION TYPE: Axial Bone Density DATE OF EXAM: 10/10/2018 COMPARISON: 2013 CLINICAL HISTORY: M [age] Height: 5 FT 1 IN Weight: 172 FRAX RISK QUESTIONS: History of Fracture in Adulthood: YES Secondary Osteoporosis: RISK FACTORS HISTORY OF: History of Wrist Fracture: VILMA WRIST FX When: LT 2017 RT IN HIGHSCHOOL Surgery to Spine/Hip(right/left)/Wrist (right/left): LT WRIST When: 2017 Active: YES Postmenopausal woman: LATE 50'S Lost more than 2 inches in height since high school: YES MEDICATIONS: Additional Medications: CHOLESTEROL MEDS, DEPRESSION MEDS, MEDS FOR DRY MOUTH, EYE DROPS FOR CORNEA T RANSPLANT , Additional History: EXAM MEASUREMENTS: Bone mineral densitometry was performed using the [employer] System. Bone mineral density as measured about the Lumbar spine is: ----- L1-L4(G/cm2): 1.166 T Score Values are as follows: ----- L2: -1.4 ----- L3: -0.3 ----- L4: 0.1 ----- L1-L4: -0.1 Bone mineral density has: INCREASED 15.9 % since study of: 2013 Bone mineral density about the R hip (g/cm2): 0.725 Bone mineral density about the L hip (g/cm2): 0.702 T Score values are as follows: -----R Neck: -2.3 -----L Neck: -2.4 -----R Total: -2.2 -----L Total: -2.3 Bone mineral density has: DECREASED -8.8 % since study of: 2013 IMPRESSION: Osteopenia (T Score between -2.5 and -1). Values are borderline for osteoporosis. There is slightly increased risk of fracture and the patient may be considered for treatment. Re-Screen 2-5 years. NOTE: T-SCORE=SD OF THE YOUNG ADULT MEAN.
== END | disposition home or self-care (01) ==
LOC: RADBDWWP 15:53
PROVIDERS: ATTEND Family Medicine
DX: M85.851 Other specified disorders of bone density and structure, right thigh (principal); M85.852 Other specified disorders of bone density and structure, left thigh; M85.88 Other specified disorders of bone density and structure, other site
CPT/HCPCS: 77080

== ENCOUNTER 2019-11-06 06:58 | Day surgery (SDC) | payer BC ==
[2019-10-31 11:04] VITALS: BMI 27.4
[~2019-11-06 06:58] MED LIST changes: +ATROPINE OPHTH SOLN 1% 5ML BTL OPHTHALMIC ONE; +BUPIVACAINE (PF) 0.5% 4.5 ML, HYALURONIDASE, HUMAN RECOMB 150 UNIT, LIDOCAINE 2% (PF) 9... IO ONE; +LIDOCAINE 1% (10MG/ML) FOR IV START INTRADERMA PRN; -LIDOCAINE 1% 20 ML VIAL (10MG/ML) FOR IV START INTRADERMA PRN; +MOXIFLOXACIN HCL 0.5% DROPS 3 ML BTL OP ONE; +TIMOLOL 0.5% OPHTH DROPS 5 ML BTL OP ONE; +TOBRAMYCIN 0.3% OPHTH OINT 3.5 GM TUBE LEFT EYE ONE
[2019-11-06] MEDS ORDERED: BUPIVACAINE (PF) 0.5% 30 ML VIAL INTRAARTIC ONE (06:59)
[2019-11-06] MEDS: PILOCARPINE 2% OPHTH DROPS 15 ML BTL OP ONE ×3 (07:20→07:30)
[2019-11-06 07:29] VITALS: RESP 16; TEMP 98.2
[2019-11-06] MEDS ORDERED: fentaNYL (PF) 50 MCG/ML 2 ML AMP ONE ×2 (07:47)
[2019-11-06] MEDS ORDERED: LABETALOL 5 MG/ML VIAL MDV ONE ×2 (07:47)
[2019-11-06] MEDS ORDERED: PROPOFOL 10 MG/ML 20 ML VIAL IV ONE ×2 (07:47)
[2019-11-06] MEDS ORDERED: MIDAZOLAM 2 MG/2 ML VIAL ONE ×2 (07:47)
[2019-11-06] MEDS ORDERED: BALANCED SALT IRRIG SOLN COMB2 500 ML IRRIGATION ONE ×2 (08:15)
[2019-11-06] MEDS ORDERED: TRYPAN BLUE 0.06% SYRINGE 0.5 ML SYRINGE INTRAOCULA ONE (08:19)
[2019-11-06] MEDS ORDERED: DUOVISC KIT (GREEN BOX) INTRAOCULA ONE (08:20)
[2019-11-06] MEDS ORDERED: BALANCED SALT IRRIG SOLN COMB2 15 ML IRRIG.SOLN IRRIGATION ONE (08:20)
--- NOTE | 2019-11-06 09:13 | P.OP ---
Date of Procedure: 11/06/19 Preoperative Diagnosis: DMEK rejection Postoperative Diagnosis: same Procedure(s) Performed: DMEK Implants: none Anesthesia: regional Surgeon: Eddie Phillips Pathology: none sent Condition: stable Disposition: same day Indications for Procedure: transplant rejection Operative Findings: No complications
[2019-11-06 10:14] VITALS: BP 127/75; PULSE 83
--- NOTE | 2019-11-06 22:37 | OP ---
OPERATIVE REPORT DATE OF SURGERY: 11/06/2019. PROCEDURE: Descemet membrane endothelial keratoplasty of the left eye. 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 SURGEON: Dr. Eddie Phillips. ANESTHESIA: Regional with a retrobulbar block and monitored anesthesia care. ESTIMATED BLOOD LOSS: None. SPECIMEN TAKEN: None. NARRATIVE: After obtaining the appropriate consent, the patient was brought to the operating room, where she was placed under cardiac monitoring. She was administered propofol, and when sufficiently asleep a retrobulbar anesthetic consisting of lidocaine, Marcaine and hyaluronidase was injected into the retrobulbar space using a 1-1/2-inch, 25-gauge Sal needle. A [place] balloon was placed on the patient's eye for approximately 5 minutes. After that time, the eye was then prepped and draped in the usual sterile manner. She was approached from her left temporal side, and in the each of the 4 diagonal quadrants, an MVR blade was used to create a paracentesis port. Through one of the paracenteses, trypan blue was instilled into the eye and left in place for approximately 3 minutes. When this was irrigated away, a temporal incision with a 2.5 mm keratome was made, and using a Salcedo-Sinagustina Hook, an outline of the 8.25 mm diameter shoalwater which had been previously placed on the patient's eye using a Beena Trephine was used to identify the edge of the previous DMEK transplant. The transplant peeled from the posterior stroma of the patient's cornea without much difficulty and the remaining viscoelastic was then removed under irrigation and aspiration, ensuring all viscoelastic was removed from the anterior chamber. The temporal incision was sized for the Cristina tube and the corneal tissue identified from [facility] is [id number], left lamellar posterior layer only. This tissue was brought in its transport to the patient's eye and was instilled into the anterior chamber without difficulties. The temporal incision was then closed in a single X fashion suture using 10-0 nylon. Various maneuvers were used on the cornea to manipulate the Descemet's donor and initially the tissue was identified in an inverted fashion and through additional manipulations was converted to the belut-mntu-eq orientation. A little further manipulation laid the tissue in its proper orientation and placed it within the eye. The donor tissue was then buoyed into place with a small bubble of room air. Once it appeared that the cornea was in its proper position, the anterior chamber pressure was then raised using 20% SF6 gas. This pressure was maintained on the eye for approximately 20 minutes along with observation that there were no areas of dehiscence or wrinkle within the tissue. Approximately 20 minutes out, 40% to 50% of the anterior chamber gas was replaced with balanced salt solution. The patient then received tobramycin ointment to the eye and was returned to the recovery area, where she remained for an additional hour in the supine position. Following that period of time, the patient was brought to the slit-lamp to confirm proper placement and attachment of the donor tissue to the host cornea. This was confirmed to be in the proper position and the patient was therefore discharged from the postoperative area. There were no complications from the procedure and she returned home in good condition. MMANGEL / LIANA: [id number] /
== END 2019-11-06 11:02 | disposition home or self-care (01) ==
LOC: OR 06:58
PROVIDERS: ATTEND Ophthalmology
DX: T86.840 Corneal transplant rejection (principal); H18.51 Endothelial corneal dystrophy; H04.123 Dry eye syndrome of bilateral lacrimal glands; H52.221 Regular astigmatism, right eye; H52.13 Myopia, bilateral; Z94.7 Corneal transplant status; I10 Essential (primary) hypertension; K58.9 Irritable bowel syndrome, unspecified; J45.909 Unspecified asthma, uncomplicated; F32.9 Major depressive disorder, single episode, unspecified; Z79.82 Long term (current) use of aspirin; Z79.899 Other long term (current) drug therapy; Z96.652 Presence of left artificial knee joint; Z98.41 Cataract extraction status, right eye; Z98.42 Cataract extraction status, left eye; Z96.1 Presence of intraocular lens; Z98.890 Other specified postprocedural states; Z97.3 Presence of spectacles and contact lenses; Z83.3 Family history of diabetes mellitus; Z80.9 Family history of malignant neoplasm, unspecified; Z83.518 Family history of other specified eye disorder
CPT/HCPCS: 87070; 87205; 87075; 65756; V2785; J2250; J3470; J2001; J3010; J2704

== ENCOUNTER → 2020-01-24 | Outpatient (CLI) | payer BC ==
--- NOTE | 2020-01-27 10:22 | MM ---
Reason for exam: screening (asymptomatic). Last mammogram was performed 1 year and 8 months ago. History: Patient is postmenopausal. Family history of breast cancer in mother at age 65. Benign right mammotome panel of the right breast, July 10, 2006. Took estrogen for 1 year 6 months beginning at age 46. Took progesterone for 1 year 6 months beginning at age 46. Physical Findings: A clinical breast exam by your physician is recommended on an annual basis and results should be correlated with mammographic findings. MG Screening Mammo w CAD Bilateral CC and MLO view(s) were taken. Prior study comparison: May 28, 2018, bilateral MG 3d screening mammo w/cad. April 03, 2017, bilateral MG screening mammo w CAD. The breast tissue is heterogeneously dense. This may lower the sensitivity of mammography. Stable benign calcifications. There is chronic nodularity in the left breast. No significant changes when compared with prior studies. ASSESSMENT: Benign, BI-RAD 2 RECOMMENDATION: Routine screening mammogram of both breasts in 1 year.
== END | disposition home or self-care (01) ==
LOC: RADMAMWWP 13:19
PROVIDERS: ATTEND Family Medicine
DX: Z12.31 Encounter for screening mammogram for malignant neoplasm of breast (principal)
CPT/HCPCS: 77067

== ENCOUNTER → 2020-02-28 | Day surgery (SDC) | payer BC ==
[2020-02-27 11:12] VITALS: BMI 29.2
[~2020-02-28] MED LIST changes: -ATROPINE OPHTH SOLN 1% 5ML BTL OPHTHALMIC ONE; -BUPIVACAINE (PF) 0.5% 4.5 ML, HYALURONIDASE, HUMAN RECOMB 150 UNIT, LIDOCAINE 2% (PF) 9... IO ONE; -LIDOCAINE 1% (10MG/ML) FOR IV START INTRADERMA PRN; +LIDOCAINE 1% INJ 10MG/ML (20 ML MDV) ONE; -MOXIFLOXACIN HCL 0.5% DROPS 3 ML BTL OP ONE; +PROPOFOL 10 MG/ML 20 ML VIAL IV ONE; -TIMOLOL 0.5% OPHTH DROPS 5 ML BTL OP ONE; -TOBRAMYCIN 0.3% OPHTH OINT 3.5 GM TUBE LEFT EYE ONE
[2020-02-28 10:17] VITALS: TEMP 98.9
--- NOTE | 2020-02-28 11:29 | P.PCN ---
Date of Procedure: 02/28/20 Procedure(s) Performed: BRIEF HISTORY: Patient is a 65-year-old pleasant white female scheduled for an elective colonoscopy as a part of evaluation of prior history of colon polyps. Last colonoscopy was 5 years ago. PROCEDURE PERFORMED: Colonoscopy. PREOPERATIVE DIAGNOSIS: History of colon polyps. IV sedation per Anesthesia. PROCEDURE: After informed consent was obtained, the patient, was brought into the endoscopy unit. IV sedation was administered by Anesthesia under continuous monitoring. Digital rectal examination was normal. Initially the Olympus CF-160 flexible video colonoscope was then inserted in the rectum, gradually advanced into the cecum without any difficulty. Careful examination was performed as the scope was gradually being withdrawn. Ileocecal valve and the appendiceal orifice were visualized and appeared normal. Prep was excellent. Mucosa of the cecum, ascending colon, transverse colon, descending colon, sigmoid colon, and rectum appeared normal. At her sigmoid diverticulosis seen. Retroflexion was performed in the rectum and no lesions were seen. The patient tolerated the procedure well. IMPRESSION: Scattered sigmoid diverticulosis No evidence of colorectal neoplasia RECOMMENDATIONS: Findings of this examination were discussed with the patient as well as her family. She was advised to have a repeat screening colonoscopy in 5 years because of the prior history of colon polyps.
[2020-02-28 11:36] VITALS: RESP 17
[2020-02-28 11:45] VITALS: BP 118/56; PULSE 92
== END ==
LOC: ORWHC2ENDO 09:44
PROVIDERS: ATTEND Internal Medicine Gastroenterology
DX: Z12.11 Encounter for screening for malignant neoplasm of colon (principal); K57.30 Diverticulosis of large intestine without perforation or abscess without bleeding; Z86.010 Personal history of colon polyps; E78.5 Hyperlipidemia, unspecified; J45.909 Unspecified asthma, uncomplicated; G43.909 Migraine, unspecified, not intractable, without status migrainosus; K58.9 Irritable bowel syndrome, unspecified; Z79.890 Hormone replacement therapy; Z79.899 Other long term (current) drug therapy
CPT/HCPCS: G0121; J2001; J2704; 45378

== ENCOUNTER → 2020-04-01 | Outpatient (CLI) | payer BC ==
--- NOTE | 2020-04-01 15:52 | CONS ---
CONSULTATION DATE OF SERVICE: 04/01/2020 This 65-year-old lady has been evaluated in [facility] for possible obstructive sleep apnea-hypopnea syndrome. HISTORY OF PRESENT ILLNESS/SLEEP-WAKE EVALUATION: Patient usual sleep schedule from 11 p.m. until 830 to 9:30 am. Sometimes she has problems with falling asleep at night. Has TV set in bedroom. She usually sleeps on the side position. She snores. No history of hypnagogic hallucinations, sleep paralysis or cataplexy. [place] Sleepiness Scale is 3. PAST MEDICAL HISTORY: Positive for episodes of hypertension in the office, arthritis, hyperlipidemia, depression. PAST SURGICAL HISTORY: Cornea transplant bilaterally. MEDICATIONS: Desvenlafaxine 100 mg once a day, Singular 10 mg once a day, Bentyl 20 mg once a day, Zocor 20 mg once a day, Desyrel 50 mg once a day, 150 mg once a day, Cardizem 180 mg once a day. PHYSICAL EXAMINATION: GENERAL: lady without distress. VITAL SIGNS: BP 157/75, HR 100, RR 15, height 5 feet 4 inches, weight 175, BMI 32.5, temperature 98.2, oxygen saturation at room air 96%. HEENT: PERRLA, EOMI. Oropharynx extremely low position of soft palate. Mallampati 4. NECK: Supple, no JVD. Thyroid is not palpable. LUNGS: Clear to percussion and to auscultation. Good air exchange. No wheezing or rhonchi. HEART: S1, S2 regular. No murmurs, gallops, or rubs. ABDOMEN: Obese. EXTREMITIES: No clubbing or cyanosis. SYSTEMS ENG: Awake, alert, and oriented X3. Cranial nerves 2 to 7 intact. There is no fasciculation or atrophy. noted. No focal deficits observed. IMPRESSION: 1. Snoring, extremely low position of soft palate, possible obstructive sleep apnea- hypopnea syndrome. 2. Obesity. 3. Hypertension in the office. 4. History of depression. 5. Status post bilateral cornea eye transplant. 6. Status post neck surgery. PLAN: 1. Home sleep apnea test for evaluation of patient breathing during sleep. 2. CPAP/BiPAP titration if sleep study confirms obstructive sleep apnea-hypopnea syndrome. 3. Preferable position during sleep on the side. 4. No driving if patient feels any sleepiness. 5. I will see patient for follow up visit to explain results of testing and following plan. Thank you very much for referring this patient for consultation. Sincerely, Canelo Stinson MD, PhD, FAASM Diplomat of [employer] Adding Machine Mechanic of [facility] [place] MMODL / LIANA: [id number] /
== END | disposition home or self-care (01) ==
LOC: SLEEP 13:46
PROVIDERS: ATTEND Internal Medicine
DX: R06.83 Snoring (principal); E66.9 Obesity, unspecified; I10 Essential (primary) hypertension; Z86.59 Personal history of other mental and behavioral disorders; Z94.89 Other transplanted organ and tissue status
CPT/HCPCS: 99211

== ENCOUNTER → 2020-10-02 | Outpatient (CLI) | payer BC | END | disposition home or self-care (01) | LOC: LABWHC1 12:07 | PROVIDERS: ATTEND Orthopaedic Surgery | DX: Z01.812 Encounter for preprocedural laboratory examination (principal); M17.11 Unilateral primary osteoarthritis, right knee; Z22.322 Carrier or suspected carrier of Methicillin resistant Staphylococcus aureus | CPT/HCPCS: 87070 ==

== ENCOUNTER 2020-11-03 08:46 | Day surgery (SDC) | payer BC ==
[2020-10-29 15:45] VITALS: BMI 29.2
--- NOTE | 2020-11-02 09:52 | HP ---
HISTORY AND PHYSICAL CHIEF COMPLAINT: Right knee pain. HISTORY OF PRESENT ILLNESS: The patient is a 65-year-old retired female who presents with progressive right knee pain secondary to osteoarthrosis for the past several years despite previous conservative treatment. She has tried injections in addition to medications, without much relief. She is having daily pain along with swelling. She has been limping. She notes night symptoms. PAST MEDICAL HISTORY: Past medical history is significant for arthritis, asthma. PAST SURGICAL HISTORY: Past surgical history is significant for left total knee arthroplasty, maxillary surgery, tubal ligation in addition to previous wrist fracture fixation. CURRENT MEDICATIONS: Levbid, Advil. ALLERGIES: SHE DENIES DRUG ALLERGIES. FAMILY HISTORY: Significant for cancer. SOCIAL HISTORY: Negative for current tobacco or alcohol use. REVIEW OF SYSTEMS: Sixteen-point review of systems otherwise is reviewed and is noncontributory. PHYSICAL EXAMINATION: On examination, the patient is approximately 5 feet 4 inches, 170 pounds of mesomorphic habitus. HEENT exam is nonfocal. Neck is supple. She has painless passive motion of the right hip. Straight-leg raise is negative. Active motion of the right knee minus 10 to 110 degrees of flexion. She has a moderate effusion. She is tender about the medial joint line. Collaterals are stable, Carlos negative, Alana's is equivocal. She has genu varum alignment. Her distal neurovascular exam appears intact in the right lower extremity. Previous x-rays of the right knee obtained in the office show severe medial compartment narrowing with [id number] changes and subchondral sclerosis. IMPRESSION: Right knee severe medial compartment osteoarthrosis. RECOMMENDATIONS: I talked to the patient at length regarding her condition and treatment options. At this point, she is having persistent/significant pain and limitation because of her osteoarthrosis despite previous conservative measures. After thorough discussion, she opts to proceed with surgery. We will plan to proceed with right total knee arthroplasty. We will institute DVT prophylaxis postoperatively. Risks and benefits were discussed at length in layman's terms. MMODL / IJN: [id number] /
[~2020-11-03 08:46] MED LIST changes: +ACETAMINOPHEN TAB 500 MG TAB PO PRN; +GABAPENTIN 300 MG CAP PO PRN; -LACTATED RINGERS 1,000 ML IV SCH; -LIDOCAINE 1% INJ 10MG/ML (20 ML MDV) ONE; +MELOXICAM 7.5 MG TAB PO PRN; -PROPOFOL 10 MG/ML 20 ML VIAL IV ONE; +TRANEXAMIC ACID 1,000 MG in SODIUM CHLORIDE 0.9% 100 ML IVPB PRN
[2020-11-03] MEDS ORDERED: DILTIAZEM ORAL 60 MG TAB PO STA (09:14)
[2020-11-03] MEDS ORDERED: LACTATED RINGERS 1,000 ML IV ONE ×2 (09:22→12:27)
[2020-11-03] MEDS ORDERED: ONDANSETRON 4 MG/2 ML VIAL ONE (09:23)
[2020-11-03] MEDS ORDERED: MIDAZOLAM 2 MG/2 ML VIAL IVP ONE (09:39)
[2020-11-03] MEDS ORDERED: fentaNYL (PF) 50 MCG/ML 2 ML AMP IVP ONE (09:42)
[2020-11-03] MEDS ORDERED: DEXAMETHASONE SOD PHOSPHATE 4 MG/ML 1 ML VIAL IVP ONE (10:07)
[2020-11-03] MEDS ORDERED: PHENYLEPHRINE-0.9% NACL SYG 1,000 MCG/10 ML SYRINGE ONE (10:47)
[2020-11-03] MEDS ORDERED: MIDAZOLAM 2 MG/2 ML VIAL ONE (10:47)
[2020-11-03] MEDS ORDERED: SODIUM CHLORIDE 0.9% 100 ML BAG ONE (10:47)
[2020-11-03] MEDS ORDERED: fentaNYL (PF) 50 MCG/ML 2 ML AMP ONE (10:47)
[2020-11-03] MEDS ORDERED: ROPIVACAINE 5 MG/ML 30 ML VIAL ONE (10:47)
[2020-11-03] MEDS ORDERED: TRANEXAMIC ACID 1,000 MG/10 ML VIAL ONE (10:47)
[2020-11-03] MEDS ORDERED: SODIUM CHLORIDE 0.9% (PF) 10 ML VIAL ONE (10:47)
[2020-11-03] MEDS ORDERED: ceFAZolin 1,000 MG in SODIUM CHLORIDE 0.9% 1,000 ML IRRIGATION ONE (11:17)
[2020-11-03] MEDS ORDERED: HYDROcodone/APAP 5-325MG 1 EACH TAB PO PRN (12:31)
[2020-11-03] MEDS ORDERED: ONDANSETRON 4 MG/2 ML VIAL IVP PRN (12:31)
[2020-11-03] MEDS ORDERED: ACETAMINOPHEN TAB 325 MG TAB PO PRN (12:31)
[2020-11-03] MEDS ORDERED: NALOXONE 0.4 MG/ML 1 ML VIAL IV PRN (12:31)
[2020-11-03] MEDS ORDERED: MAGNESIUM HYDROXIDE 2,400 MG/10 ML CUP PO PRN (12:31)
[2020-11-03] MEDS ORDERED: HYDROmorphone 0.5 MG/0.5 ML SYRINGE IVP PRN (12:31)
--- NOTE | 2020-11-03 12:50 | P.OP ---
Date of Procedure: 11/03/20 Preoperative Diagnosis: Severe right knee tricompartmental osteoarthrosis Postoperative Diagnosis: Same Procedure(s) Performed: Right total knee arthroplastycementedcruciate retaining Implants: Depuy Attune size 6 neuro cemented femoral component, size 5 cemented tibial component, 9 mm articular surface, 35 mm cemented patellar component. This is a cruciate retaining implant. Anesthesia: regional, spinal Surgeon: Chris Urias Technology Infusion Specialist #1: Reilly Diez Estimated Blood Loss (ml): 50 Pathology: other (Bone fragments) Condition: stable Disposition: PACU Indications for Procedure: Patient is a 65-year-old female who presents with persistent/progressive right knee pain secondary to osteoarthrosis despite conservative measures. A discussion of the risks and benefits of continued conservative measures versus operative intervention was made with patient. She opted to proceed with surgery. Operative risks to include infection, neurovascular injury, development of blood clots, possible fracture, possible component loosening/failure need for subsequent procedures was discussed. Informed consent was obtained. Operative Findings: As below Description of Procedure: The patient was brought to the operating room, and after induction of spinal anesthesia the right lower extremity was prepped and draped in a normal fashion. The tourniquet was inflated to 270 mmHg. A longitudinal incision extending 3 finger breaths above the superior pole of the patella extending to the medial aspect the tibial tubercle was then made. The skin and subcutaneous tissues were divided sharply. Electrocautery was used for hemostasis. A medial parapatellar arthrotomy was then performed. The medial soft tissues to include the superficial and deep portions of the medial collateral ligament as well as the medial hamstring tendons were elevated subperiosteally. The proximal medial tibia osteophytes were carefully removed. The patella was everted. The knee was flexed. A portion of the retropatellar fat pad was excised sharply. The anterior cruciate ligament was sacrificed. A starting hole was made in the distal femur 1 cm anterior to the posterior cruciate origin. An intramedullary femoral guide was gently inserted planning on 5 valgus distal cut with 9 mm distal resection. The cutting block was pinned in place. The distal cut was then made. The posterior referencing sizing guide was utilized. 3 of external rotation was built into the system and verified off the trans- epicondylar axis and the posterior condyles. I felt size 6 narrow was most appropriate. The cutting block was pinned in place. The anterior, posterior, and chamfer cuts were then made. The bone fragments were removed. A sulcus cut was then made with the appropriate guide. The trial size 6 narrow femoral component was then placed and was fully seated. There was good anterior to posterior and medial to lateral fit. The distal peg holes were then drilled. The trial component was then removed. Attention was then paid towards preparing the proximal tibia. An extra medullary guide was utilized in line with the tibial shaft and second metatarsal distally. A 7 posterior slope was planned. I planned on 2 mm resection from the medial compartment. The cutting block was pinned in place. The proximal tibial cut was then made. The bone was removed in one fragment. The remnants of the medial and lateral menisci were excised the capsule junction with electrocautery. The tibia sized most appropriately at size 5. The posterior osteophytes off the distal femur were carefully removed with a curved osteotome. The trial tibial and femoral components were placed along with a 9 millimeters articular surface. I was able to obtain full flexion and extension with good stability with varus and valgus stress. After several flexion and extension cycles, the tibial rotation was marked with electrocautery in line with the medial one third of the tibial tubercle. Attention was then paid towards preparing the patella. A patella reamer was utilized taking this down to 14 mm of bone stock. A good flush cut was made. The patella sized most appropriately at 35 millimeters. The peg holes were then drilled. The trial component was placed. The knee was taken through a range of motion. I had good patellofemoral tracking with no hands technique. The trial components were then removed. The tibia was prepared in the appropriate rotation with appropriate drill and keel punch. The flexion and extension gaps were checked and felt to be symmetric. The posterior soft tissues were injected with ropivacaine. The bony surfaces were prepared with pulsatile lavage and dried. The deep tibial component was then cemented in place and was fully seated. Excess cement was removed. The femoral component was cemented in place and was fully seated. Again excess cement was removed. The trial 9 millimeters surface was then inserted in the knee was put in full extension. The patella component was cemented in place. After the cement had sufficiently hardened, the knee was again taken through a range of motion. Again there was good stability in f lexion and extension with varus and valgus stress. The trial articular surface was then removed. The final articular surface was placed and was impacted. Care was taken to avoid any soft tissue interposition. Pulsatile lavage was again utilized. The tourniquet was deflated with approximately 60 minutes total tourniquet time. There was minimal drainage therefore a deep drain was not placed. The medial parapatellar arthrotomy was then closed with #2 Ethibond suture. The subcutaneous tissues were reapproximated interrupted 2-0 Vicryl sutures. The skin was reapproximated with 3-0 subarticular strata fix suture. Skin tape and adhesive was applied. A sterile dressing was applied. The patient was then awoken from sedation and transferred to recovery room in good condition. Blood loss was estimated at 50 milliliters. No complications were incurred. Sponge and needle counts were correct at the end the case. Arnulfo MCKEON assisted during the major components this case to include exposure, bone resection, and implantation.
[2020-11-03] MEDS ORDERED: ROPIVACAINE 0.2%-NS ON-Q PUMP 2 MG/ML EACH MISCELLANE ONE (12:56)
--- NOTE | 2020-11-03 13:31 | XR ---
EXAMINATION TYPE: XR knee limited RT DATE OF EXAM: 11/03/2020 COMPARISON: NONE TECHNIQUE: Two views submitted HISTORY: Post op FINDINGS: There is a prosthetic knee in near anatomic alignment. There is soft tissue edema and emphysema. IMPRESSION: 1. Postoperative change. Appears in near-anatomic alignment
--- NOTE | 2020-11-03 16:29 | P.ANPRN ---
Procedure Note - Anesthesia - Nerve Block Performed Right Adductor Canal Infusion Time Out Performed: Yes Date of Procedure: 11/03/20 Procedure Start Time: 09:15 Procedure Stop Time: 09:33 Location of Patient: PreOp Indication: Acute Post-Operative Pain, Dx/Pain Location, Requested by Surgeon Specifically requested for management of pain by : Chris Urias Sedation Type: Sedate with meaningful contact maintained Preparation: Sterile Prep, Sterile Dressing Position: Supine Catheter Depth at Skin (cm): 7 Catheter: Indwelling Needle Types: Pajunk Needle Gauge: 21 Ultrasound used to visualize needle placement: Yes Ultrasound used to observe medication spread: Yes Injectate: 0.5% Ropivacaine (see comment for volume) Blood Aspirated: No Pain Paresthesia on Injection Noted: No Resistance on Injection: Normal Image Stored and Saved: Yes Events: Uneventful and Well Tolerated (20cc 0.5% ropivacaine)
--- NOTE | 2020-11-03 16:30 | P.ANPRN ---
Procedure Note - Anesthesia - Nerve Block Performed Right iPack Time Out Performed: Yes Date of Procedure: 11/03/20 Procedure Start Time: 09:34 Procedure Stop Time: 09:39 Location of Patient: PreOp Indication: Acute Post-Operative Pain, Dx/Pain Location, Requested by Surgeon Specifically requested for management of pain by DrPaula: Chris Urias Sedation Type: Sedate with meaningful contact maintained Preparation: Sterile Prep Position: Supine Catheter: None Needle Types: Facet Needle Gauge: 21 Ultrasound used to visualize needle placement: Yes Ultrasound used to observe medication spread: Yes Injectate: 0.5% Ropivacaine (see comment for volume) Blood Aspirated: No Pain Paresthesia on Injection Noted: No Resistance on Injection: Normal Image Stored and Saved: Yes Events: Uneventful and Well Tolerated (15cc 0.375% ropivacaine)
[2020-11-03] MEDS ORDERED: SENNOSIDES-DOCUSATE SODIUM 1 EACH TAB PO SCH (21:00)
[2020-11-03] MEDS ORDERED: ALBUTEROL NEBULIZED 2.5 MG/3 ML INHALATION PRN (22:37)
[2020-11-03] MEDS ORDERED: DILTIAZEM CD 180 MG CAP.ER.24H PO SCH (22:39)
[2020-11-03] MEDS ORDERED: traZODone HCL 50 MG TAB PO SCH (22:45)
[2020-11-03] MEDS: BRIMONIDINE TARTRATE 0.2% DROPS 5 ML BTL LEFT EYE SCH (23:31)
--- NOTE | 2020-11-03 23:47 | P.CONS ---
History of Present Illness - Reason for Consult Consult date: 11/03/20 Medical management. - Chief Complaint Right total knee arthroplasty - History of Present Illness Patient is a 65-year-old female with known history of asthma, hypertension, hyperlipidemia, osteoarthritis, IBS and migraine headaches was admitted hospital for elective total knee arthroplasty due to severe right knee tricompartmental osteoarthritis. Patient failed conservative measures and opted to proceed with surgery. Currently right knee pain is continuous controlled with nerve block. Denied any complaints of chest pain or shortness of breath. No nausea vomiting or abdominal pain or diarrhea. No headache or dizziness or lightheadedness. Patient was tachycardic with heart rate in 130s prior to surgery. Currently maintaining sinus rhythm. Saturating well on room air. Review of Systems Constitutional: Patient denies any fever or chills . No generalized weakness or weight loss. Abdomen: Patient denied nausea vomiting and diarrhea and abdominal pain. Cardiovascular: Patient denies any chest pain or short of breath no palpitations. Respiratory: patient denied any cough or sputum production. No shortness of breath Neurologic: Patient denied any numbness or tingling headache. Musculoskeletal: Patient denies any complaints of joint swelling or deformity. Skin: Negative Psychiatric: Negative Endocrine: No heat or cold intolerance. No recent weight gain. Genitourinary: No dysuria or hematuria. All other 14 point ROS negative except the above Past Medical History Past Medical History: Asthma, Eye Disorder, Hyperlipidemia, Hypertension, Osteoarthritis (OA) Additional Past Medical History / Comment(s): IBS, Migraines, Hx fx tailbone w/ compression Fx in back. 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 Wearing air cast Lt hand. Edema Rt knee History of Any Multi-Drug Resistant Organisms: None Reported Past Surgical History: Adenoidectomy, Joint Replacement, Orthopedic Surgery, Tonsillectomy, Tubal Ligation Additional Past Surgical History / Comment(s): Total L knee arthroplasty, Jaw Surgery, bilateral CATARACTS, ORIF lt wrist. left knee arthroscopy, cataracts w/ mult eye surgeries along w/ corneas. Right total knee arthroplasty (11/03/20). Past Anesthesia/Blood Transfusion Reactions: Postoperative Nausea & Vomiting (PONV) Additional Past Anesthesia/Blood Transfusion Reaction / Comm: no hx blood transfusion Past Psychological History: No Psychological Hx Reported Additional Psychological History / Comment(s): . Smoking Status: Never smoker Past Alcohol Use History: None Reported Past Drug Use History: None Reported - Past Family History Father Family Medical History: Cancer Additional Family Medical History / Comment(s): prostate,bone,lungs Mother Family Medical History: Cancer Additional Family Medical History / Comment(s): breast Sister(s) Family Medical History: Cancer Medications and Allergies Home Medications Medication Instructions Recorded Confirmed Type Diltiazem Cd [Cardizem Cd] 180 mg PO HS 11/28/13 11/03/20 History Albuterol Sulfate [Proair Hfa] 2 puff INHALATION RT-QID PRN 12/25/14 10/29/20 History Desvenlafaxine Succinate [Pristiq 100 mg PO HS 12/25/14 10/29/20 History ER] Montelukast [Singulair] 10 mg PO DAILY 12/25/14 10/29/20 History traZODone HCL [Desyrel] 50 mg PO HS 12/25/14 10/29/20 History Estradiol Cream [Estrace Cream 1 gm VAGINAL Q7D PRN 05/05/16 10/29/20 History 0.01%] SUMAtriptan SUCCINATE [Imitrex] 100 mg PO BID PRN 05/05/16 10/29/20 History Cholecalciferol (Vitamin D3) 50 mcg PO DAILY 12/29/16 10/29/20 History [Vitamin D3] Cranberry 1 tab PO DAILY 12/29/16 10/29/20 History L.acidoph,Paracasei, B.lactis 1 each PO BID 02/17/17 10/29/20 History [Probiotic] Simvastatin [Zocor] 20 mg PO HS 10/31/19 10/29/20 History Ascorbic Acid [Vitamin C] 1,000 mg PO DAILY 02/27/20 10/29/20 History Dicyclomine [Bentyl] 20 mg PO DAILY 02/27/20 10/29/20 History Melatonin 10 mg PO HS 02/27/20 10/29/20 History Multivitamins, Thera [Multivitamin 1 tab PO DAILY 02/27/20 10/29/20 History (formulary)] Vitamin C/Biotin [Hair, Skin and 2 tab PO HS 02/27/20 10/29/20 History Nails] Brimonidine Tartrate [Alphagan P 1 drops LEFT EYE Q8H 10/29/20 10/29/20 History 0.1% Ophth Soln] Fexofenadine HCl [Selina Allergy] 180 mg PO DAILY 10/29/20 10/29/20 History Fluticasone/Salmeterol [Advair 1 inhalation PO BID 10/29/20 11/03/20 History 250-50 Diskus] Loteprednol Etabonate [Lotemax 1 drop RIGHT EYE WE 10/29/20 10/29/20 History Ophth Gel Drops] Mometasone Furoate [Nasonex Nasal 2 spray EA NOSTRIL DAILY 10/29/20 11/03/20 History [place]] Naproxen Sodium [Aleve] 220 mg PO DAILY PRN 10/29/20 10/29/20 History Psyllium Husk [Metamucil] 0.8 gm PO DAILY 10/29/20 10/29/20 History buPROPion HCL [buPROPion HCL SR] 150 mg PO DAILY 10/30/20 10/30/20 History Allergies Allergy/AdvReac Type Severity Reaction Status Date / Time No Known Allergies Allergy Verified 10/29/20 14:56 Physical Exam Vitals: Vital Signs Temp Pulse Pulse Resp BP Pulse Ox 11/03/20 19:58 99.1 F 112 H 19 145/73 95 11/03/20 19:31 17 11/03/20 15:30 83 18 116/65 97 11/03/20 15:00 88 18 118/59 97 11/03/20 14:30 80 18 116/57 97 11/03/20 14:00 83 18 127/61 97 11/03/20 13:30 92 16 138/58 95 11/03/20 13:15 88 14 136/64 95 11/03/20 13:00 98 16 136/60 95 11/03/20 12:47 97.6 F 100 16 142/95 95 11/03/20 10:03 99 15 158/80 99 11/03/20 09:59 98 15 158/80 99 11/03/20 09:52 123 H 15 155/79 99 11/03/20 09:06 98.8 F 135 H 17 180/90 91 L Intake and Output 11/03/20 11/03/20 11/03/20 06:59 14:59 22:59 Intake Total 1451 Output Total 50 Balance 1401 Intake: IV 1451 Output: Estimated Blood Loss 50 Other: # Voids 1 Weight 77.111 kg 77.111 kg PHYSICAL EXAMINATION: Patient is lying in the bed comfortably, no acute distress, awake alert and oriented.. HEENT: Normocephalic. Neck is supple. Pupils reactive. Nostrils clear. Oral cavity is moist. Ears reveal no drainage. Neck reveals no JVD, carotid bruits, or thyromegaly. CHEST EXAMINATION: Trachea is central. Symmetrical expansion. Lung mccrary clear to auscultation and percussion. CARDIAC: Normal S1, S2 with no gallops. No murmurs ABDOMEN: Soft. Bowel sounds normal. No organomegaly. No abdominal bruits. Extremities: reveal no edema. No clubbing or cyanosis Neurologically awake, alert, oriented x3 with well-coordinated movements. No focal deficits noted Skin: No rash or skin lesions. Psychiatric: Coperative. Nonsuicidal Musculoskeletal: No joint swelling or deformity. Normal range of motion.Right knee surgical site is packed. No increase in swelling. Assessment and Plan Assessment: Status post right total knee arthroplasty due to severe osteoarthrosis tricompartmental. Postoperative day 0 Hypertension. Controlled Hyperlipidemia Asthma Osteoarthritis IBS Migraine headaches DVT prophylaxis. Plan: Patient is currently nerve block. Continue with current pain management and encourage incentive spirometry. DVT prophylaxis as per primary team. Monitor his intake. c/w Cardizem CD 120 mg daily. Continue with albuterol inhalation and Advair, Singulair. As needed Bentyl for abdominal cramping pain and patient is on sumatriptan for migraine headaches as needed. Continue with home medications and follow-up closely. Monitor CBC and CMP tomorrow. We will continue to follow with you and further recommendations based on clinical course. Thank you for the consult.
--- NOTE | 2020-11-04 07:03 | P.PN ---
Progress Note - Text Progress Note Date: 11/04/20 Pt seen and examined at bedside. Patient is POD#1 s/p total knee replacement with adductor canal catheter placed for post operative pain control. Patient is doing well this morning with a pain score of 0/10. Patient reports going to the bathroom several times last night without difficulty or pain. Patient able to ambulate without difficulty. Site is clean and dry without erythema. Patient denies HARRIS, F/C, N/V, chest pain, SOB, or dizziness. Continue pain pump at current rate. Patients pain control is acceptable for discharge to home.
[2020-11-04] MEDS ORDERED: SYMBICORT 80-4.5 MCG INHALER INHALATION SCH (08:00)
[2020-11-04] MEDS: BRIMONIDINE TARTRATE 0.2% DROPS 5 ML BTL LEFT EYE SCH (08:11)
[2020-11-04] MEDS: HYDROcodone/APAP 5-325MG 1 EACH TAB PO PRN ×2 (08:12→14:00)
[2020-11-04] MEDS ORDERED: DICYCLOMINE 20 MG TAB PO SCH (09:00)
[2020-11-04] MEDS ORDERED: MONTELUKAST 10 MG TAB PO SCH (09:00)
[2020-11-04] MEDS ORDERED: RIVAROXABAN 10 MG TAB PO SCH (09:00)
[2020-11-04] MEDS ORDERED: buPROPion SR 150 MG TABLET.ER PO SCH (09:00)
[2020-11-04 09:22] LABS: Basophils # (A) 0.02 X 10*3/uL (0.00-0.10); Basophils % (A) 0.2 %; Eosinophils # (A) 0 X 10*3/uL (0.04-0.35); Eosinophils % (A) 0 %; HCT 43.3 % (37.2-46.3); HGB 13.5 g/dL (12.0-15.0); Lymphocytes # (A) 1.19 X 10*3/uL (0.90-5.00); Lymphocytes % (A) 9.8 %; MCH 30.3 pg (27.0-32.0); MCHC 31.2 g/dL (32.0-37.0); MCV 97.1 fL (80.0-97.0); Mean Platelet Volume 12.9 fL (9.5-12.2); Monocytes # (A) 0.91 X 10*3/uL (0.20-1.00); Monocytes % (A) 7.5 %; Neutrophils # (A) 9.99 X 10*3/uL (1.80-7.70); Neutrophils % (A) 82.2 %; Platelet Count 213 X 10*3/uL (140-440); RBC 4.46 X 10*6/uL (4.10-5.20); RDW 13.9 % (11.5-14.5); WBC 12.15 X 10*3/uL (4.50-10.00)
--- NOTE | 2020-11-04 10:30 | P.PN ---
Subjective Progress Note Date: 11/04/20 Principal diagnosis: Status post right total knee arthroplasty Patient is examined today at bedside, she is resting comfortably. She did ambulate with physical therapy today with aid of a walker. She's been out multiple times using the restroom with no difficulty. She denies any headaches, lightheadedness, chest pain or shortness of breath. Her pain is well-controlled currently. Objective - Vital Signs Vital signs: Vital Signs Temp 98.7 F 11/04/20 06:57 Pulse 94 11/04/20 06:57 Resp 17 11/04/20 06:57 BP 116/74 11/04/20 06:57 Pulse Ox 94 L 11/04/20 06:57 Intake & Output 11/03/20 11/04/20 11/04/20 18:59 06:59 18:59 Intake Total 1451 Output Total 50 Balance 1401 Weight 77.111 kg Intake: IV 1451 Output: Estimated Blood Loss 50 Other: # Voids 1 1 - Exam Right lower extremity: Incision is clean, dry, and intact. The exofin fusion tape is in good condition. There is minimal soft tissue swelling and ecchymosis surrounding the medial and lateral aspects of the incision. Calf is soft, no tenderness with palpation. Plantar flexion, dorsiflexion, EHL, FHL are intact. Sensory exam to light touch throughout the extremity is intact, dorsal pedis pulses 2+. - Labs CBC & Chem 7: 11/04/20 05:37 Labs: Abnormal Lab Results - Last 24 Hours (Table) 11/04/20 Range/Units 05:37 WBC 12.15 H (4.50-10.00) X 10*3/uL MCV 97.1 H (80.0-97.0) fL MCHC 31.2 L (32.0-37.0) g/dL MPV 12.9 H (9.5-12.2) fL Neutrophils # 9.99 H (1.80-7.70) X 10*3/uL Eosinophils # 0 L (0.04-0.35) X 10*3/uL Assessment and Plan Assessment: Status post right total knee arthroplasty Plan: Pain control, plan for discharge home on oral medication GI and DVT prophylaxis, plan for aspirin 81 mg twice a day for 1 month Wound care instructions were discussed Icing and elevating techniques discussed Encourage incentive spirometer Home therapy/PT after discharge Medical recommendations Discharge: Plan for discharge home today Time with Patient: Less than 30
--- NOTE | 2020-11-04 10:35 | P.DS ---
Providers Date of admission: 11/03/2020 Expected date of discharge: 11/04/20 Attending physician: Chris Urias Consults: 11/03/20 12:31 Consult Physician Routine Consulting Provider: Mingo Lorenzo Consult Reason/Comments: medical management Do you want consulting provider notified?: Yes Primary care physician: Jayne Lucas Hospital Course: Date of admission: 11/03/2020 Date of discharge: 11/04/2020 Admission diagnosis: Status post right total knee arthroplasty Discharge diagnosis: Same Attending physician: Dr. Urias Surgical procedures: Right total knee arthroplasty Brief history: Patient is a 65-year-old female with a history of progressive primary osteoarthritis. At this point patient has failed conservative treatment measures and has opted to proceed with a elective right total knee arthroplasty. Hospital course: Details of patient's surgery can be found in operative report. Patient tolerated the procedure well and was subsequently transported to orthopedic floor. Patient's orthopeidc and medical care was provided daily. Patient had daily laboratory tests performed for evaluation of overall blood counts. Patient had daily physical therapy to include strengthening range of motion as well as education with walker ambulation. Patient was treated with for Lovenox their postoperative DVT prophylaxis during their inpatient stay. Patient was noted to have a relatively uneventful postoperative course. Patient reported satisfactory pain control with oral pain medications by postoperative day 0. Patient showed satisfactory progress with physical therapy. Patient moved steadily through the program and had no difficulty meeting the goals by postoperative day 1. Given patient's otherwise satisfactory course and having met physical therapy goals, plan is to discharge patient home on postoperative day 1. Discharge condition/disposition: Patient will be discharged home in stable condition. Discharge medications: Instructions are given on resumption of patient's normal daily medications per primary care recommendation, in addition patient will be prescribed [place] 5 mg/325 mg, aspirin 81 mg. Discharge instructions: 1. Wound care and infection precautions, keep incision dry and covered while showering, no lotions, creams, moisturizers. No soaking, tubs, pools, hottubs. Do not scrub over the incision. 2. Weight-bear as tolerated with walker / cane until follow-up. 3. Ice and elevate when necessary. Do not exceed 20 minutes per hour with ice pack. 4. Utilize compression sleeve until seen at first follow up appointment. 5. Visiting nursing care. 6. Home physical therapy including home CPM. 7. Pain meds and anticoagulants per prescription. 8. Pain medication has potential to cause constipation. Increase oral fluid and fiber intake. Contact primary care provider if you have not had a bowel movement within 48 hours after discharge 9. No anti-inflammatory medication until discussed at first post operative visit, this including Motrin, Aleve, Mobic, Diclofenac 10. Follow up in office at 2 weeks postop with Arnulfo Diez PA-C/Geovani Marrero PA-C 11. Follow up with your primary care doctor 7-10 days after discharge. 12. Contact [facility] with any questions, . Procedures: Right total knee arthroplasty Patient Condition at Discharge: Good Plan - Discharge Summary Discharge Rx Participant: No New Discharge Prescriptions: New HYDROcodone/APAP 5-325MG [[place] 5-325] 1 - 2 tab PO Q6HR PRN #56 tab PRN Reason: Pain Aspirin [Adult Low Dose Aspirin EC] 81 mg PO BID #60 tablet. No Action Diltiazem Cd [Cardizem Cd] 180 mg PO HS Montelukast [Singulair] 10 mg PO DAILY traZODone HCL [Desyrel] 50 mg PO HS Desvenlafaxine Succinate [Pristiq ER] 100 mg PO HS Albuterol Sulfate [Proair Hfa] 2 puff INHALATION RT-QID PRN PRN Reason: Shortness Of Breath Estradiol Cream [Estrace Cream 0.01%] 1 gm VAGINAL Q7D PRN PRN Reason: Dry Skin SUMAtriptan SUCCINATE [Imitrex] 100 mg PO BID PRN PRN Reason: Migraine Headache Cholecalciferol (Vitamin D3) [Vitamin D3] 50 mcg PO DAILY Cranberry 1 tab PO DAILY L.acidoph,Paracasei, B.lactis [Probiotic] 1 each PO BID Simvastatin [Zocor] 20 mg PO HS Multivitamins, Thera [Multivitamin (formulary)] 1 tab PO DAILY Melatonin 10 mg PO HS Dicyclomine [Bentyl] 20 mg PO DAILY Ascorbic Acid [Vitamin C] 1,000 mg PO DAILY Vitamin C/Biotin [Hair, Skin and Nails] 2 tab PO HS Mometasone Furoate [Nasonex Nasal Lincoln] 2 spray EA NOSTRIL DAILY Psyllium Husk [Metamucil] 0.8 gm PO DAILY Brimonidine Tartrate [Alphagan P 0.1% Ophth Soln] 1 drops LEFT EYE Q8H Fexofenadine HCl [Selina Allergy] 180 mg PO DAILY Fluticasone/Salmeterol [Advair 250-50 Diskus] 1 inhalation PO BID Loteprednol Etabonate [Lotemax Ophth Gel Drops] 1 drop RIGHT EYE WE Naproxen Sodium [Aleve] 220 mg PO DAILY PRN PRN Reason: Pain buPROPion HCL [buPROPion HCL SR] 150 mg PO DAILY Discharge Medication List Diltiazem Cd [Cardizem Cd] 180 mg PO HS 11/28/13 [History] Albuterol Sulfate [Proair Hfa] 2 puff INHALATION RT-QID PRN 12/25/14 [History] Desvenlafaxine Succinate [Pristiq ER] 100 mg PO HS 12/25/14 [History] Montelukast [Singulair] 10 mg PO DAILY 12/25/14 [History] traZODone HCL [Desyrel] 50 mg PO HS 12/25/14 [History] Estradiol Cream [Estrace Cream 0.01%] 1 gm VAGINAL Q7D PRN 05/05/16 [History] SUMAtriptan SUCCINATE [Imitrex] 100 mg PO BID PRN 05/05/16 [History] Cholecalciferol (Vitamin D3) [Vitamin D3] 50 mcg PO DAILY 12/29/16 [History] Cranberry 1 tab PO DAILY 12/29/16 [History] L.acidoph,Paracasei, B.lactis [Probiotic] 1 each PO BID 02/17/17 [History] Simvastatin [Zocor] 20 mg PO HS 10/31/19 [History] Ascorbic Acid [Vitamin C] 1,000 mg PO DAILY 02/27/20 [History] Dicyclomine [Bentyl] 20 mg PO DAILY 02/27/20 [History] Melatonin 10 mg PO HS 02/27/20 [History] Multivitamins, Thera [Multivitamin (formulary)] 1 tab PO DAILY 02/27/20 [History] Vitamin C/Biotin [Hair, Skin and Nails] 2 tab PO HS 02/27/20 [History] Brimonidine Tartrate [Alphagan P 0.1% Ophth Soln] 1 drops LEFT EYE Q8H 10/29/20 [History] Fexofenadine HCl [Selina Allergy] 180 mg PO DAILY 10/29/20 [History] Fluticasone/Salmeterol [Advair 250-50 Diskus] 1 inhalation PO BID 10/29/20 [History] Loteprednol Etabonate [Lotemax Ophth Gel Drops] 1 drop RIGHT EYE WE 10/29/20 [History] Mometasone Furoate [Nasonex Nasal [place]] 2 spray EA NOSTRIL DAILY 10/29/20 [History] Naproxen Sodium [Aleve] 220 mg PO DAILY PRN 10/29/20 [History] Psyllium Husk [Metamucil] 0.8 gm PO DAILY 10/29/20 [History] buPROPion HCL [buPROPion HCL SR] 150 mg PO DAILY 10/30/20 [History] Aspirin [Adult Low Dose Aspirin EC] 81 mg PO BID #60 tablet. 11/04/20 [Rx] HYDROcodone/APAP 5-325MG [[place] 5-325] 1 - 2 tab PO Q6HR PRN #56 tab 11/04/20 [Rx] Follow up Appointment(s)/Referral(s): Geovani Marrero, PAC [PHYSICIAN INDUSTRIAL PHARMACIST] - 2 Weeks [facility] [NON-STAFF] - As Needed [facility],Equipment [NON-STAFF] - As Needed (Continuous Passive Motion knee machine) Activity/Diet/Wound Care/Special Instructions: Orthopedic Discharge Instructions: 1. Wound care and infection precautions, keep incision dry and covered while showering, no lotions, creams, moisturizers. No soaking, pools, hot tubs. Do not scrub over incision. 2. Weight-bear as tolerated with walker / cane until follow-up. 3. Ice and elevate when necessary. Do not exceed 20 minutes per hour with ice pack. 4. Utilize compression sleeve until seen at first follow up appointment. 5. Pain meds and anticoagulants per prescription. 6. Pain medication has potential to cause constipation. Increase oral fluid and fiber intake. Contact primary care provider if you have not had a bowel movement within 48 hours after discharge. 7. No anti-inflammatory medication until discussed at first post operative visit, this including Motrin, Aleve, Mobic, Diclofenac. 8. Follow up in office at 2 weeks postop with Arnulfo Diez PA-C/Geovani Marrero PA-C 9. Follow up with your primary care doctor 7-10 days after discharge. 10. Contact [facility] with any questions, . Discharge Disposition: HOME WITH HOME HEALTH SERVICES
[2020-11-04 14:44] VITALS: BP 121/73; PULSE 81; RESP 18; TEMP 97.5
[2020-11-04] MEDS ORDERED: DESVENLAFAXINE SUCCINATE 50 MG TAB.ER.24H PO SCH (21:00)
[2020-11-04] MEDS ORDERED: ATORVASTATIN 10 MG TAB PO SCH (21:00)
== END 2020-11-04 15:41 | disposition home health service (06) ==
LOC: OR 08:46 → 4SSUR 12:47 → OR 11-04 15:41
PROVIDERS: ATTEND Orthopaedic Surgery
DX: M17.11 Unilateral primary osteoarthritis, right knee (principal); I10 Essential (primary) hypertension; G47.33 Obstructive sleep apnea (adult) (pediatric); J45.909 Unspecified asthma, uncomplicated; K58.9 Irritable bowel syndrome, unspecified; E78.5 Hyperlipidemia, unspecified; G43.909 Migraine, unspecified, not intractable, without status migrainosus; Z79.899 Other long term (current) drug therapy; Z79.82 Long term (current) use of aspirin; Z98.42 Cataract extraction status, left eye; Z98.41 Cataract extraction status, right eye; Z94.7 Corneal transplant status; Z96.652 Presence of left artificial knee joint
CPT/HCPCS: 94640; 97161; 64999; 64448; 76942; 85025; 88300; 73560; 27447; C1713 ×2; C1776; J2250; J1100; S0106; J0690 ×3; J2405; J3010; J2795 ×2; J2370

== ENCOUNTER 2022-01-19 08:17 | Day surgery (SDC) | payer BC ==
[2022-01-14 08:53] VITALS: BMI 28.5
[~2022-01-19 08:17] MED LIST changes: -ACETAMINOPHEN TAB 500 MG TAB PO PRN; +ATROPINE OPHTH SOLN 1% 5ML BTL OPHTHALMIC PRN; +BUPIVACAINE (PF) 0.5% 4.5 ML, HYALURONIDASE, HUMAN RECOMB 150 UNIT, LIDOCAINE 2% (PF) 9... IO PRN; +DEXAMETHASONE SOD PHOSPHATE 4 MG/ML 1 ML VIAL IV ONE; -GABAPENTIN 300 MG CAP PO PRN; +HYDROmorphone 0.5 MG/0.5 ML SYRINGE IVP PRN; +LACTATED RINGERS 1,000 ML IV SCH; +LIDOCAINE 1% (10MG/ML) FOR IV START INTRADERMA PRN; -MELOXICAM 7.5 MG TAB PO PRN; +MOXIFLOXACIN HCL 0.5% DROPS 3 ML BTL OP PRN; +ONDANSETRON 4 MG/2 ML VIAL IVP PRN; +TIMOLOL 0.5% OPHTH DROPS 5 ML BTL OP PRN; -TRANEXAMIC ACID 1,000 MG in SODIUM CHLORIDE 0.9% 100 ML IVPB PRN
[2022-01-19] MEDS: PILOCARPINE 2% OPHTH DROPS 15 ML BTL OP PRN ×3 (09:20→09:30)
[2022-01-19 09:52] VITALS: TEMP 98.3
[2022-01-19] MEDS ORDERED: PROPOFOL 10 MG/ML 20 ML VIAL IV ONE (09:53)
[2022-01-19] MEDS ORDERED: MIDAZOLAM 2 MG/2 ML VIAL ONE (09:53)
[2022-01-19] MEDS ORDERED: fentaNYL (PF) 50 MCG/ML 2 ML AMP ONE (09:53)
[2022-01-19] MEDS ORDERED: ATROPINE OPHTH SOLN 1% 2 ML BTL LEFT EYE ONE (10:46)
[2022-01-19] MEDS ORDERED: BALANCED SALT IRRIG SOLN COMB2 15 ML IRRIG.SOLN IRRIGATION ONE (10:46)
[2022-01-19] MEDS ORDERED: HYALURONATE SODIUM INTRAOCULAR 1 EACH SYRINGE (12MG/ML) INTRAOCULA ONE (10:48)
[2022-01-19] MEDS ORDERED: BALANCED SALT IRRIG SOLN COMB2 500 ML IRRIGATION ONE (10:49)
--- NOTE | 2022-01-19 12:25 | P.OP ---
Date of Procedure: 01/19/22 Preoperative Diagnosis: failed corneal graft OS Postoperative Diagnosis: same Procedure(s) Performed: DMEK replacement, OS Implants: none Anesthesia: MAC, regional (retrobulbar) Surgeon: Eddie Phillips Pathology: other (lab for C&S) Condition: stable Disposition: same day Indications for Procedure: blurry vision Operative Findings: refloat 3 times, no other problems.
[2022-01-19 14:35] VITALS: BP 146/87; PULSE 78; RESP 20
--- NOTE | 2022-01-20 02:21 | OP ---
OPERATIVE REPORT PROCEDURE: Descemet membrane and endothelial keratoplasty of the left eye. 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 ANESTHESIA: Regional with a retrobulbar block. ESTIMATED BLOOD LOSS: None. SPECIMEN TAKEN: None. NARRATIVE: After obtaining the appropriate consent, the patient was brought to the operating room. There, she was placed under cardiac monitoring and well induced into twilight sedation with propofol. A retrobulbar anesthetic consisting of 1% lidocaine without epinephrine, 0.5% bupivacaine without epinephrine and hyaluronidase 1:1000 was injected into the retrobulbar space. This was followed by placement of a Honan balloon on the eye for 5 minutes. Confirmation of adequate paralysis of the muscles was confirmed, and she was then prepped and draped in the usual sterile manner. She was approached from her left temporal side and 4 paracenteses were created using the MVR blade in each of the diagonal quadrants. An 8.25 mm Beena trephined ring was used to define the central 8.25 mm area from which to remove the endothelial tissue from the patient's eye. This was lightly dotted with gentian madai. Trypan blue was then instilled into the patient's eye and was left in place for 5 minutes. This was irrigated away with balanced salt solution and the anterior chamber was then stabilized with Amvisc. At the 3 o'clock position, a 2.5 mm keratome was used to create a self-sealing corneal flap incision. A Matias Santanaey hook was used to score the endothelial tissue on the patient's eye and using a Descemet stripping tool, the failed endothelial tissue was removed in total. Irrigation aspiration was then introduced into the anterior chamber of the eye to remove all remaining remnants of Amvisc. The temporal incision was enlarged slightly to accommodate the Cristina tube device. On the back table, the donor tissue identified as [id number] was identified and then the donor tissue was placed in a Joceline dish. While removing the silicone cap from the end of the Cristina tube, the donor tissue had followed the cap into the Joceline dish while the cap was being removed from the Cristina tube. Care was taken to gently withdraw the donor tissue into the Joceline dish and the donor tissue was then aspirated back into the Cristina tube. While at the back table, sulfur hexafluoride was diluted to a 20% solution after washing out the 3 mL syringe with 3 aliquots of SF6 gas through a filter. The donor tissue was then brought to the host and was gently injected into the anterior chamber and the temporal incision was then closed using a single 10-0 nylon suture in an X fashion. Initial preparation of the tissue revealed that the martha on the donor stroma noted that the Descemet tissue was inverted. Therefore, the tissue was rotated top to bottom to place it in the proper orientation and using multiple manipulating techniques the donor tissue was unrolled and a small air bubble was used to secure it against the patient's cornea. At this stage of the procedure, the donor tissue was in its proper position, and therefore, SF6 was introduced into the anterior chamber to bring the eye above normal intra-ocular pressure. While instilling the SF6, a significant leak was identified adjacent to the previously placed 10-0 nylon suture, therefore, an additional single 10-0 suture in an interrupted fashion was placed to close that wound. While the donor tissue was being secured with sulfur hexafluoride, it became apparent as the stroma of the patient's cornea became more clear. It appeared that the donor tissue had partially over folded as in a taco and was incompletely placed on the underside of the of the patient's cornea. Therefore, the SF6 was withdrawn and the tissue was re-floated in balanced salt solution and with additional manipulation after an additional attempt to leave the tissue into place with less than satisfactory results. At the 3rd attempt, I did place the donor tissue against the patient's stroma in a good position with proper intra-ocular pressure for 20 minutes. At this stage of the procedure, a significant portion of the SF6 was removed leaving approximately a 40% gas bubble, which had been replaced with balanced salt solution. The patient was then taken to the recovery area where she remained supine for an additional hour. At the end of that period of time, the patient was brought to a slit lamp and confirmation of the donor tissue in its proper position was easily identified. Additionally, during the course of the procedure of manipulating the donor tissue, the epithelium had become quite loose, so a corneal epithelial debridement was performed while manipulating the donor endothelium into place to provide a better view of the donor tissue. Regardless, once the tissue was confirmed in the proper position, she received 2 drops of 0.5% timolol, followed by 2 drops of moxifloxacin and then was gently shielded in the proper manner. Following the inspection at the slit lamp in recovery, the patient was then discharged home in good condition. MMANGEL / LIANA: [id number] /
== END 2022-01-19 14:36 | disposition home or self-care (01) ==
LOC: OR 08:17
PROVIDERS: ATTEND Ophthalmology
DX: T86.8412 Corneal transplant failure, left eye (principal); F32.A Depression, unspecified; K58.9 Irritable bowel syndrome, unspecified; G43.909 Migraine, unspecified, not intractable, without status migrainosus; Z79.899 Other long term (current) drug therapy
CPT/HCPCS: 87070; 87205; 87075; 65756; V2785; C1762; J2250; J3010; J2704

== ENCOUNTER → 2022-03-10 | Outpatient (CLI) | payer BC ==
--- NOTE | 2022-03-10 14:11 | BD ---
EXAMINATION TYPE: Axial Bone Density DATE OF EXAM: 03/10/2022 COMPARISON: 10/10/2018 CLINICAL HISTORY: 67 years year old Female. ICD-10 CODE: Z78.0 MENOPAUSAL STATE Height: 61" Weight: 159.4 FRAX RISK QUESTIONS: Alcohol (3 or more units per day): NO Family History (Parent hip fracture): NO Glucocorticoids (More than 3mos): NO (Ex: prednisone, prednisolone, methylprednisolone, dexamethasone, and hydrocortisone). History of Fracture in Adulthood: YES, LEFT WRIST Secondary Osteoporosis: 1. Type 1 Diabetes: NO 2. Hyperthyroidism: NO 3. Menopause before 45: NO 4. Malnutrition: NO 5. Chronic liver disease: NO Rheumatoid Arthritis: NO Current Tobacco Use: NO RISK FACTORS HISTORY OF: Hip Fracture (Right/Left): NO Spine Fracture: NO History of Wrist Fracture: YES, LEFT WIRST Surgery to Spine/Hip(right/left)/Wrist (right/left): YES, LEFT WRIST FX AND SX When: 2019 Family History of Osteoporosis: NO Active: YES Diet low in dairy products/other sources of calcium: YES Postmenopausal woman: YES Lost more than 2 inches in height since high school: NO Frequent falls: NO Poor Health: NO Hyperparathyroidism: NO Adrenal Insufficiency: NO MEDICATIONS: Prednisone or other steroids: NO Thyroid Medications: NO Osteoporosis Medications: NO Additional Medications: CHOLESTEROL MEDS, BLOOD PRESSURE MEDS, ANXIETY/DEPRESSION MEDS, VIT D, VITAMI N C Additional History: NONE EXAM MEASUREMENTS: Bone mineral densitometry was performed using the [employer] System. Bone mineral density as measured about the Lumbar spine is: ----- L1-L4(G/cm2): 1.153 T Score Values are as follows: ----- L1: -0.4 ----- L2: -1.9 ----- L3: 1.7 ----- L4: -0.5 ----- L1-L4: -0.2 Bone mineral density has: INCREASED 2.0% since study of: 10/10/2018 Bone mineral density about the R hip (g/cm2): 0.753 Bone mineral density about the L hip (g/cm2): 0.685 T Score values are as follows: -----R Neck: -2.1 -----L Neck: -2.5 -----R Total: -2.3 -----L Total: -2.7 Bone mineral density has: DECREASED -4.2% since study of: 10/10/2018 FRAX%s: The graph provided illustrates a 22.3% chance for a major osteoporotic fx and a 5.3% chance f or the hips probability for fx in 10 years time. IMPRESSION: Osteoporosis (T Score less than -2.5). There is increased fracture risk and therapy is usually indicated based on age. Re-Screen 1-2 years. NOTE: T-SCORE=SD OF THE YOUNG ADULT MEAN.
== END | disposition home or self-care (01) ==
LOC: RADBDWWP 10:48
PROVIDERS: ATTEND Family Medicine
DX: M81.0 Age-related osteoporosis without current pathological fracture (principal); M85.89 Other specified disorders of bone density and structure, multiple sites; Z78.0 Asymptomatic menopausal state
CPT/HCPCS: 77080

== ENCOUNTER → 2022-08-01 | Outpatient (CLI) | payer BC ==
--- NOTE | 2022-08-02 19:41 | MM ---
Reason for Exam: Screening (asymptomatic). Last screening mammogram was performed 12 month(s) ago. Patient History: Menarche at age 13. First Full-Term at age 22. Postmenopausal. Estrogen for 1 year, 6 months, from age 46 until age 47. Progesterone for 1 year, 6 months, from age 46 until age 47. 07/10/2006, Benign Core Biopsy on the right side. Mother had breast cancer, age 65. Risk Values: Olga 5 year model risk: 3.5%. NCI Lifetime model risk: 11.1%. Prior Study Comparison: 05/28/2018 Bilateral Screening Mammogram, [facility]. 01/24/2020 Bilateral Screening Mammogram, [facility]. 07/30/2021 Bilateral MG screening mammo w CAD, [facility]. Tissue Density: There are scattered fibroglandular densities. Findings: Analyzed By CAD. Microclip lateral right breast from prior biopsy. Bilateral bilateral vascular calcifications. There is no suspicious group of microcalcifications or new suspicious mass in either breast. Overall Assessment: Benign, BI-RAD 2 Management: Screening Mammogram of both breasts in 1 year. See note below in regards to patient's increased 5 year Olga score. Patient should continue monthly self-breast exams. A clinical breast exam by your physician is recommended on an annual basis. This exam should not preclude additional follow-up of suspicious palpable abnormalities. Note on Olga scores and lifetime risk: 1. A Olga score greater than 3% is considered moderate risk. If this is the case, consider specialist referral to assess eligibility for a risk reducing agent. 2. If overall lifetime risk for the development of breast cancer is 20% or higher, the patient may qualify for future screening with alternating mammogram and breast MRI. Electronically signed and approved by: Linda Varma M.D. Radiologist
== END | disposition home or self-care (01) ==
LOC: RADMAMWWP 11:41
PROVIDERS: ATTEND Family Medicine
DX: Z12.31 Encounter for screening mammogram for malignant neoplasm of breast (principal); Z78.0 Asymptomatic menopausal state
CPT/HCPCS: 77063; 77067

== ENCOUNTER 2022-12-28 13:29 | Emergency (ER) | payer BC ==
--- NOTE | 2022-12-28 15:19 | ED ---
Dizziness HPI - General Source: patient, family, RN notes reviewed Mode of arrival: wheelchair Limitations: no limitations <Tony Lira - Last Filed: 12/28/22 15:18> <Conrad Lenz - Last Filed: 12/28/22 18:45> - General Chief Complaint: Syncope Stated Complaint: virtigo Time Seen by Provider: 12/28/22 15:18 - History of Present Illness Initial Comments: 67-year-old female presents emergency room with for evaluation of some dizziness, vomiting, near syncope. Patient was at the store became very dizzy. States that she lowered the ground an episode of vomiting. Denies any chest pain no headache she has had some issues with her eyes that she is scheduled for surgery for. She did take some medication just prior to this. (Tony Lira) - Related Data Home Medications Medication Instructions Recorded Confirmed Diltiazem Cd [Cardizem CD] 180 mg PO HS 11/28/13 01/14/22 Albuterol Sulfate [Proair Hfa] 2 puff INHALATION RT-QID PRN 12/25/14 01/14/22 Desvenlafaxine Succinate [Pristiq] 100 mg PO HS 12/25/14 01/14/22 Montelukast [Singulair] 10 mg PO DAILY 12/25/14 01/14/22 traZODone HCL [Desyrel] 50 mg PO HS 12/25/14 01/14/22 Estradiol Cream [Estrace Cream 1 gm VAGINAL FR PRN 05/05/16 01/14/22 0.01%] SUMAtriptan succinate [Imitrex] 100 mg PO BID PRN 05/05/16 01/14/22 Cholecalciferol (Vitamin D3) 50 mcg PO DAILY 12/29/16 01/14/22 [Vitamin D3] Cranberry 1 tab PO DAILY 12/29/16 01/14/22 L.acidoph,Paracasei, B.lactis 1 each PO BID 02/17/17 01/14/22 [Probiotic] Simvastatin [Zocor] 20 mg PO HS 10/31/19 01/14/22 Ascorbic Acid [Vitamin C] 1,000 mg PO DAILY 02/27/20 01/14/22 Dicyclomine [Bentyl] 20 mg PO DAILY 02/27/20 01/14/22 Melatonin [Melatonin ER] 10 mg PO HS 02/27/20 01/14/22 Multivitamins, Thera [Multivitamin 1 tab PO DAILY 02/27/20 01/14/22 (formulary)] Vitamin C/Biotin [Hair, Skin and 2 tab PO HS 02/27/20 01/14/22 Nails Chew] Brimonidine Tartrate [Alphagan P 1 drops LEFT EYE Q8H 10/29/20 01/14/22 0.1% Ophth Soln] Fexofenadine HCl [Selina Allergy] 180 mg PO DAILY 10/29/20 01/14/22 Fluticasone Propion/Salmeterol 1 inhalation PO BID 10/29/20 01/14/22 [Advair 250-50 Diskus] Loteprednol Etabonate [Lotemax 1 drop RIGHT EYE WE 10/29/20 01/14/22 Ophth Gel Drops] Mometasone Furoate [Nasonex 50 mcg 2 spray EA NOSTRIL DAILY 10/29/20 01/14/22 Nasal [place]] Naproxen Sodium [Aleve] 220 mg PO DAILY PRN 10/29/20 01/14/22 Psyllium Husk [Metamucil] 0.8 gm PO DAILY 10/29/20 01/14/22 buPROPion HCL [buPROPion HCL SR] 150 mg PO DAILY 10/30/20 01/14/22 azaTHIOprine [Imuran] 50 mg PO BID 01/14/22 01/14/22 Previous Rx's Medication Instructions Recorded Aspirin [Adult Low Dose Aspirin EC] 81 mg PO BID #60 tablet. 11/04/20 HYDROcodone/APAP 5-325MG [[place] 1 - 2 tab PO Q6HR PRN #56 tab 11/04/20 5-325] Allergies Allergy/AdvReac Type Severity Reaction Status Date / Time No Known Allergies Allergy Verified 12/28/22 13:52 Review of Systems ROS Other: All systems not noted in ROS Statement are negative. <Tony Lira - Last Filed: 12/28/22 15:18> ROS Other: All systems not noted in ROS Statement are negative. <Conrad Lenz - Last Filed: 12/28/22 18:45> ROS Statement: Those systems with pertinent positive or pertinent negative responses have been documented in the HPI. Past Medical History Past Medical History: Asthma, Eye Disorder, Hyperlipidemia, Osteoarthritis (OA) Additional Past Medical History / Comment(s): IBS, MIGRAINES, HX OF BROKEN TAILBONE WITH COMPRESSION FX IN HER BACK, failed corneal transplant lt eye. History of Any Multi-Drug Resistant Organisms: None Reported Past Surgical History: Adenoidectomy, Joint Replacement, Orthopedic Surgery, Tonsillectomy, Tubal Ligation Additional Past Surgical History / Comment(s): Total L knee arthroplasty, Jaw Surgery, bilateral CATARACTS, ORIF lt wrist. left knee arthroscopy, cataracts w/ mult eye surgeries along w/ corneas. Right total knee arthroplasty (11/03/20). Past Anesthesia/Blood Transfusion Reactions: Postoperative Nausea & Vomiting (PONV) Additional Past Anesthesia/Blood Transfusion Reaction / Comment(s): no hx blood transfusion Past Psychological History: Depression Smoking Status: Never smoker Past Alcohol Use History: None Reported Past Drug Use History: None Reported - Past Family History Father Family Medical History: Cancer Additional Family Medical History / Comment(s): prostate,bone,lungs Mother Family Medical History: Cancer Additional Family Medical History / Comment(s): breast Sister(s) Family Medical History: Cancer <Tony Lira - Last Filed: 12/28/22 15:18> General Exam Limitations: no limitations <Tony Lira - Last Filed: 12/28/22 15:18> - General Exam Comments Initial Comments: Visual Physical Exam Vital signs reviewed General: Well-appearing, nontoxic, no acute distress. Head: Normocephalic, atraumatic Eyes: PERRLA, EOMI ENT: Airway patent Chest: Nonlabored breathing Skin: No visual rash, normal skin tone Neuro: Alert and oriented 3 Musculoskeletal: No gross abnormalities (Tony Lira) Course Vital Signs 12/28/22 13:52 Temperature 97.5 F L Pulse Rate 60 Respiratory 16 Rate Blood Pressure 114/63 O2 Sat by Pulse 99 Oximetry EKG Findings - EKG Results: EKG: interpreted by ERMD, sinus rhythm (Rate 66 bpm), normal QRS, normal ST/T - Blocks, [place], Hypertrophy, ST Abn: QRS axis and voltage: left axis deviation (-30 to -90) (Borderline left axis) <Conrad Lenz - Last Filed: 12/28/22 18:45> Medical Decision Making <Tony Lira - Last Filed: 12/28/22 15:18> - Lab Data Result diagrams: 12/28/22 16:11 12/28/22 16:11 <Conrad Lenz - Last Filed: 12/28/22 18:45> - Medical Decision Making I performed the quick note portion of this chart signed Tony Lira PA-C (Tony Perrin) - Lab Data Lab Results 12/28/22 12/28/22 12/28/22 Range/Units 16:11 16:11 16:11 WBC 5.6 (3.8-10.6) k/uL RBC 4.31 (3.80-5.40) m/uL Hgb 14.2 (11.4-16.0) gm/dL Hct 43.7 (34.0-46.0) % MCV 101.5 H (80.0-100.0) fL MCH 32.8 (25.0-35.0) pg MCHC 32.4 (31.0-37.0) g/dL RDW 13.1 (11.5-15.5) % Plt Count 225 (150-450) k/uL MPV 10.4 Neutrophils % 81 % Lymphocytes % 12 % Monocytes % 5 % Eosinophils % 1 % Basophils % 0 % Neutrophils # 4.5 (1.3-7.7) k/uL Lymphocytes # 0.7 L (1.0-4.8) k/uL Monocytes # 0.3 (0-1.0) k/uL Eosinophils # 0.0 (0-0.7) k/uL Basophils # 0.0 (0-0.2) k/uL Macrocytosis Slight PT 10.5 (10.0-12.5) sec INR 0.9 (<1.2) APTT 21.1 L (22.0-30.0) sec Sodium 139 (137-145) mmol/L Potassium 4.3 (3.5-5.1) mmol/L Chloride 105 (98-107) mmol/L Carbon Dioxide 26 (22-30) mmol/L Anion Gap 8 mmol/L BUN 16 (7-17) mg/dL Creatinine 0.83 (0.52-1.04) mg/dL Est GFR (CKD-EPI)AfAm 84 (>60 ml/min/1.73 sqM) Est GFR (CKD-EPI)NonAf 73 (>60 ml/min/1.73 sqM) Glucose 94 (74-99) mg/dL Calcium 9.3 (8.4-10.2) mg/dL Magnesium 2.3 (1.6-2.3) mg/dL Total Bilirubin 1.0 (0.2-1.3) mg/dL AST 42 H (14-36) U/L ALT 23 (4-34) U/L Alkaline Phosphatase 71 (38-126) U/L Troponin I (0.000-0.034) ng/mL Total Protein 7.4 (6.3-8.2) g/dL Albumin 4.3 (3.5-5.0) g/dL 12/28/22 Range/Units 16:11 WBC (3.8-10.6) k/uL RBC (3.80-5.40) m/uL Hgb (11.4-16.0) gm/dL Hct (34.0-46.0) % MCV (80.0-100.0) fL MCH (25.0-35.0) pg MCHC (31.0-37.0) g/dL RDW (11.5-15.5) % Plt Count (150-450) k/uL MPV Neutrophils % % Lymphocytes % % Monocytes % % Eosinophils % % Basophils % % Neutrophils # (1.3-7.7) k/uL Lymphocytes # (1.0-4.8) k/uL Monocytes # (0-1.0) k/uL Eosinophils # (0-0.7) k/uL Basophils # (0-0.2) k/uL Macrocytosis PT (10.0-12.5) sec INR (<1.2) APTT (22.0-30.0) sec Sodium (137-145) mmol/L Potassium (3.5-5.1) mmol/L Chloride (98-107) mmol/L Carbon Dioxide (22-30) mmol/L Anion Gap mmol/L BUN (7-17) mg/dL Creatinine (0.52-1.04) mg/dL Est GFR (CKD-EPI)AfAm (>60 ml/min/1.73 sqM) Est GFR (CKD-EPI)NonAf (>60 ml/min/1.73 sqM) Glucose (74-99) mg/dL Calcium (8.4-10.2) mg/dL Magnesium (1.6-2.3) mg/dL Total Bilirubin (0.2-1.3) mg/dL AST (14-36) U/L ALT (4-34) U/L Alkaline Phosphatase (38-126) U/L Troponin I <0.012 (0.000-0.034) ng/mL Total Protein (6.3-8.2) g/dL Albumin (3.5-5.0) g/dL Disposition <Tony Lira - Last Filed: 12/28/22 15:18> Is patient prescribed a controlled substance at d/c from ED?: No <Conrad Lenz - Last Filed: 12/28/22 18:45> Clinical Impression: Syncope Disposition: HOME SELF-CARE Condition: Good Instructions (If sedation given, give patient instructions): Syncope (DC) Referrals: Burton Mulligan MD [Primary Care Provider] - 1-2 days
[2022-12-28 17:10] LABS: Basophils % (A) 0 %; Eosinophils % (A) 1 %; HCT 43.7 % (34.0-46.0); HGB 14.2 gm/dL (11.4-16.0); Lymphocytes # (A) 0.7 k/uL (1.0-4.8); Lymphocytes % (A) 12 %; MCH 32.8 pg (25.0-35.0); MCHC 32.4 g/dL (31.0-37.0); MCV 101.5 fL (80.0-100.0); Macrocytosis Slight; Mean Platelet Volume 10.4; Monocytes # (A) 0.3 k/uL (0-1.0); Monocytes % (A) 5 %; Neutrophils # (A) 4.5 k/uL (1.3-7.7); Neutrophils % (A) 81 %; Platelet Count 225 k/uL (150-450); RBC 4.31 m/uL (3.80-5.40); RDW 13.1 % (11.5-15.5); WBC 5.6 k/uL (3.8-10.6)
[2022-12-28 17:19] LABS: INR 0.9 (<1.2); Prothrombin Time 10.5 sec (10.0-12.5)
[2022-12-28 17:33] LABS: Partial Thromboplastin Time 21.1 sec (22.0-30.0)
[2022-12-28 17:36] LABS: ALT 23 U/L (4-34); AST 42 U/L (14-36); African American GFR (CKD) 84 (>60 ml/min/1.73 sqM); Albumin 4.3 g/dL (3.5-5.0); Alkaline Phosphatase 71 U/L (38-126); Anion Gap 8 mmol/L; Blood Urea Nitrogen 16 mg/dL (7-17); Calcium 9.3 mg/dL (8.4-10.2); Carbon Dioxide 26 mmol/L (22-30); Chloride 105 mmol/L (98-107); Glucose 94 mg/dL (74-99); Magnesium 2.3 mg/dL (1.6-2.3); Non-African American GFR(CKD) 73 (>60 ml/min/1.73 sqM); Potassium 4.3 mmol/L (3.5-5.1); Sodium 139 mmol/L (137-145); Total Protein 7.4 g/dL (6.3-8.2)
--- NOTE | 2022-12-28 18:35 | XR ---
EXAMINATION TYPE: XR chest 2V DATE OF EXAM: 12/28/2022 6:05 PM CLINICAL INDICATION:Female, 67 years old with history of syncope; COMPARISON: Chest radiographs from 09/09/2013. TECHNIQUE: XR chest 2V Frontal and lateral views of the chest. FINDINGS: Lungs/Pleura: Low lung volumes are present. There is no evidence of pleural effusion, focal consolida tion, or pneumothorax. Pulmonary vascularity: Unremarkable. Heart/mediastinum: Cardiomediastinal silhouette is prominent in size. Musculoskeletal: No acute osseous pathology. IMPRESSION: Low lung volumes with a generalized hazy appearance which could represent atelectasis.
[2022-12-28 19:08] VITALS: BP 117/65; PULSE 80; RESP 18; TEMP 98.9
== END 2022-12-28 19:10 | disposition home or self-care (01) ==
LOC: EC 13:29
DX: R55 Syncope and collapse (principal); J45.909 Unspecified asthma, uncomplicated; E78.5 Hyperlipidemia, unspecified; F32.A Depression, unspecified; Z79.899 Other long term (current) drug therapy
CPT/HCPCS: 36415; 71046; 80053; 83735; 84484; 85025; 85610; 85730; 93005; 99285

== ENCOUNTER 2023-01-04 06:18 | Day surgery (SDC) | payer BC ==
[~2023-01-04 06:18] MED LIST changes: -DEXAMETHASONE SOD PHOSPHATE 4 MG/ML 1 ML VIAL IV ONE; -HYDROmorphone 0.5 MG/0.5 ML SYRINGE IVP PRN; -LIDOCAINE 1% (10MG/ML) FOR IV START INTRADERMA PRN; -ONDANSETRON 4 MG/2 ML VIAL IVP PRN
[2023-01-04] MEDS: PILOCARPINE 2% OPHTH DROPS 15 ML BTL OP PRN ×3 (06:55→07:05)
[2023-01-04] MEDS ORDERED: ONDANSETRON 4 MG/2 ML VIAL ONE (07:14)
[2023-01-04] MEDS ORDERED: ONDANSETRON 4 MG/2 ML VIAL IVP ONE (07:23)
[2023-01-04 07:25] VITALS: TEMP 97.6
[2023-01-04] MEDS ORDERED: DEXAMETHASONE SOD PHOSPHATE 4 MG/ML 1 ML VIAL IVP ONE (07:26)
[2023-01-04] MEDS ORDERED: fentaNYL (PF) 50 MCG/ML 2 ML AMP ONE (07:32)
[2023-01-04] MEDS ORDERED: PROPOFOL 10 MG/ML 20 ML VIAL IV ONE (07:32)
[2023-01-04] MEDS ORDERED: MIDAZOLAM 2 MG/2 ML VIAL ONE ×2 (07:32→13:16)
[2023-01-04] MEDS ORDERED: BALANCED SALT IRRIG SOLN COMB2 500 ML IRRIGATION ONE (08:00)
[2023-01-04] MEDS ORDERED: ACETYLCHOLINE CHLORIDE 10 MG/ML 2 ML KIT INTRAOCULA ONE (08:22)
[2023-01-04] MEDS ORDERED: LACTATED RINGERS 1,000 ML IV ONE (09:58)
--- NOTE | 2023-01-04 13:06 | P.OP ---
Date of Procedure: 01/04/23 Preoperative Diagnosis: Fuch's endothelial dystrophy Postoperative Diagnosis: same Procedure(s) Performed: DMEK OS Implants: none Anesthesia: MAC Surgeon: Eddie Phillips Pathology: none sent Condition: stable Disposition: same day Indications for Procedure: corneal edema and poor vision Operative Findings: no complications
--- NOTE | 2023-01-04 13:37 | P.OP ---
Date of Procedure: 01/04/23 Preoperative Diagnosis: post DMEK, insufficient bubble Postoperative Diagnosis: same Procedure(s) Performed: inject gas into anterior chamber "rebubbling" (1.5ml) Implants: none Anesthesia: MAC Surgeon: Eddie Phillips Pathology: none sent Condition: stable Disposition: same day Indications for Procedure: DMEK without sufficient SF6 Operative Findings: no complications
[2023-01-04 14:11] VITALS: BP 146/78; PULSE 80; RESP 16
--- NOTE | 2023-01-04 23:35 | OP ---
OPERATIVE REPORT DATE OF SERVICE : 01/04/2023 PROCEDURE PERFORMED: Descemet's membrane and endothelial keratoplasty of the left eye. 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 ANESTHESIA: Monitored anesthesia care with a regional block. SPECIMEN TAKEN: Donor tissue, transport media, as well as collarette of host eye for submission for culture and sensitivity. HISTORY: This patient is a 67-year-old female, who has undergone multiple corneal transplants. It has been determined that she has an immune system, which has been damaging the previously-placed Descemet's membrane and endothelial keratoplasty transplants and is now stabilized on anti-inflammatory medication of Imuran 200 mg daily. She returns for repeat Descemet's membrane and endothelial keratoplasty to resolve the poor vision and corneal edema problem related to poorly-functioning Descemet's membrane. NARRATIVE: This patient was brought to the operating room, placed under cardiac monitoring, and received a retrobulbar anesthetic consisting of 1% lidocaine with epinephrine and 0.75% Marcaine with epinephrine and 100 units of Wydase. Approximately 7 mL of the solution was injected into the retrobulbar space after the patient had been placed under propofol anesthesia. A [place] balloon was left in the eye for about 10 minutes. Confirmation that the eye was adequately blocked at about 8 minutes was accomplished with the patient awake and aware of her surroundings. The eye was then further prepped to accept intraocular surgery with Betadine. She was then draped in the appropriate manner. She was approached from her left temporal side. Four paracenteses using an MVR blade were created at 2, 4, 8, and 10 on the eye. Trypan blue was instilled into the anterior chamber and left for 3 minutes. This was irrigated away with balanced salt solution. At the 3 o'clock position, a 2.5 mm keratome was used to create a self- sealing corneal flap incision, which was further enlarged to accommodate a Cristina tube. Amvisc was used to stabilize the anterior chamber after she received additional Miochol to further enhance pupillary miosis. Using a Salcedo-Liliana hook, the area in the center part of the cornea was outlined on the endothelial side, and using an endothelial stripping instrument, the previously-failed endothelial membrane was removed from its bed and out of the patient's eye. It was examined to determine if the entire endothelial membrane had been removed. Irrigation and aspiration were introduced to remove any of the remaining viscoelastic from within the anterior chamber, and the eye was filled with balanced salt solution to only slightly over half depth to accommodate the transplant tissue. The corneal transplant tissue transported in a Cristina tube identified as tissue #[id number] cornea in Optisol GS posterior layer only. This was removed from its transport container into a Joceline dish, and the tissue was adjusted with balanced salt solution so that it would be easily removed from the Cristina tube at the appropriate time. The tissue was brought to the patient's eye and gently injected into the anterior chamber. A small amount of the tissue followed the Cristina tube out, however, was manipulated using fluid, and the whole tissue was then deposited within the anterior chamber. A 10-0 nylon suture was used to secure the temporal incision in an X-fashion. Using multiple methods of unrolling the scrolled endothelial tissue with the stromal marking in the correct orientation was accomplished with some significant effort due to the clarity of corneal tissue. Additionally, during this time, central epithelium was removed in order to allow for better clarity of the anterior chamber. Once it was determined that the endothelial tissue was in the appropriate position, a small air bubble was placed under the central Descemet's membrane tissue and floated to contact the host stroma. A better appreciation of the positioning of the lens was noted with the small air bubble and was then followed by using 20% SF6 gas to deepen the anterior chamber and raise the internal pressure of the eye to approximately 30 mmHg. This condition was monitored for the next 20 minutes. At the end of this period of time, a portion of the remaining SF6 was replaced with balanced salt solution leaving approximately a 40% gas bubble within the anterior chamber of the eye. Two drops of moxifloxacin followed by 2 drops of 0.5% timolol were placed on the patient's eye, and a shield was used to protect the eye. The patient was then returned to the recovery area, where she remained supine for an additional hour. At the end of the 1 hour's time, the patient was examined at a slit-lamp, and the amount of remaining gas had shrunken to no more than about 10%. Therefore, she was brought back to the operating room, where she was once again washed with Betadine and 5% Betadine within the conjunctiva, and additional SF6 was instilled into the anterior chamber leaving approximately a 50% gas bubble in the anterior chamber. There was no noted dislocation of the transplant tissue, and once the gas bubble was enlarged in the operating room, the patient was then returned to the recovery area after an additional drop of moxifloxacin on the eye, and the eye was re- shielded. She was allowed to remain in the recovery area for an additional half an hour and then was released to home in good condition. MMODL / IJN: [id number] /
== END 2023-01-04 14:14 | disposition home or self-care (01) ==
LOC: OR 06:18
PROVIDERS: ATTEND Ophthalmology
DX: T86.8412 Corneal transplant failure, left eye (principal); E78.00 Pure hypercholesterolemia, unspecified; K58.9 Irritable bowel syndrome, unspecified; F32.A Depression, unspecified; I10 Essential (primary) hypertension; E78.5 Hyperlipidemia, unspecified; J45.909 Unspecified asthma, uncomplicated; E03.9 Hypothyroidism, unspecified; M19.90 Unspecified osteoarthritis, unspecified site; Z79.51 Long term (current) use of inhaled steroids; Z94.7 Corneal transplant status; Z96.1 Presence of intraocular lens; Z79.899 Other long term (current) drug therapy
CPT/HCPCS: 87070; 87205; 87075; 65756; J2250; J3470; J1100; J2001; J2405; J3010; J2704; J0665

== ENCOUNTER → 2023-08-04 | Outpatient (CLI) | payer BC ==
--- NOTE | 2023-08-07 13:35 | MM ---
Reason for Exam: Screening (asymptomatic). Last screening mammogram was performed 12 month(s) ago. Patient History: Menarche at age 13. First Full-Term at age 22. Postmenopausal. Estrogen for 1 year, 6 months, from age 46 until age 47. Progesterone for 1 year, 6 months, from age 46 until age 47. 07/10/2006, Benign Core Biopsy on the right side. Mother had breast cancer, age 65. Risk Values: Olga 5 year model risk: 3.5%. NCI Lifetime model risk: 10.7%. Prior Study Comparison: 01/24/2020 Bilateral Screening Mammogram, [facility]. 07/30/2021 Bilateral MG screening mammo w CAD, [facility]. 08/01/2022 Bilateral MG 3D screening mammo w/cad, [facility]. Tissue Density: There are scattered areas of fibroglandular density. Findings: Analyzed By CAD. The pattern is symmetrical. No significant interval change is evident. Benign vascular calcifications present. A core marker is within the right breast. Scattered benign punctate calcifications are present greater on the right. No suspicious groups of microcalcifications, spiculated or lobular masses, architectural distortion or other secondary signs of malignancy are mammographically apparent. Overall Assessment: Benign, BI-RAD 2 Management: Screening Mammogram of both breasts in 1 year. A negative mammogram report should not preclude additional follow up of suspicious palpable abnormalities. Patient should continue monthly self breast exam. A clinical breast exam by your physician is recommended on an annual basis and results should be correlated with mammographic findings. Note on Olga scores and lifetime risk: 1. A Olga score greater than 3% is considered moderate risk. If this is the case, consider specialist referral to assess eligibility for a risk reducing agent. 2. If overall lifetime risk for the development of breast cancer is 20% or higher, the patient may qualify for future screening with alternating mammogram and breast MRI. Electronically signed and approved by: Boogie Andrade D.O. Radiologis
== END | disposition home or self-care (01) ==
LOC: RADMAMWWP 11:07
PROVIDERS: ATTEND Family Medicine
DX: Z12.31 Encounter for screening mammogram for malignant neoplasm of breast (principal); Z80.3 Family history of malignant neoplasm of breast; Z78.0 Asymptomatic menopausal state
CPT/HCPCS: 77067

== ENCOUNTER 2023-08-23 08:36 | Day surgery (SDC) | payer BC ==
[~2023-08-23 08:36] MED LIST changes: -LACTATED RINGERS 1,000 ML IV SCH
[2023-08-23] MEDS ORDERED: LIDOCAINE 1% (10MG/ML) FOR IV START INTRADERMA PRN (08:41)
[2023-08-23] MEDS: PILOCARPINE 2% OPHTH DROPS 15 ML BTL OP PRN (09:49)
[2023-08-23] MEDS: LACTATED RINGERS 1,000 ML IV SCH (09:50)
[2023-08-23] MEDS: IV FLUID CONTINUATION 1,000 ML IV ONE (09:51)
[2023-08-23 09:56] VITALS: BP 175/81; PULSE 93; RESP 16; TEMP 98.3
== END 2023-08-23 11:13 | disposition home or self-care (01) ==
LOC: OR 08:36
PROVIDERS: ATTEND Ophthalmology
DX: Z53.8 Procedure and treatment not carried out for other reasons (principal); H18.513 Endothelial corneal dystrophy, bilateral

== ENCOUNTER 2023-09-06 08:09 | Day surgery (SDC) | payer BC ==
[~2023-09-06 08:09] MED LIST changes: -ATROPINE OPHTH SOLN 1% 5ML BTL OPHTHALMIC PRN; -BUPIVACAINE (PF) 0.5% 4.5 ML, HYALURONIDASE, HUMAN RECOMB 150 UNIT, LIDOCAINE 2% (PF) 9... IO PRN; +LIDOCAINE 1% (10MG/ML) FOR IV START INTRADERMA PRN; -MOXIFLOXACIN HCL 0.5% DROPS 3 ML BTL OP PRN; -TIMOLOL 0.5% OPHTH DROPS 5 ML BTL OP PRN
[2023-09-06] MEDS: LACTATED RINGERS 1,000 ML IV SCH (08:43)
[2023-09-06] MEDS: PILOCARPINE 2% OPHTH DROPS 15 ML BTL OP PRN (08:49)
[2023-09-06] MEDS: IV FLUID CONTINUATION 1,000 ML IV ONE (09:08)
[2023-09-06 09:09] VITALS: TEMP 96.9
[2023-09-06] MEDS: methylPREDNISolone SOD SUCCI 125 MG/2 ML VIAL IV NR (09:50)
[2023-09-06] MEDS ORDERED: PROPOFOL 10 MG/ML 20 ML VIAL IV ONE (10:41)
[2023-09-06] MEDS ORDERED: MIDAZOLAM 2 MG/2 ML VIAL ONE (10:41)
[2023-09-06] MEDS ORDERED: fentaNYL (PF) 50 MCG/ML 2 ML AMP ONE (10:41)
[2023-09-06] MEDS: BUPIVACAINE (PF) 0.5% 4.5 ML, HYALURONIDASE, HUMAN RECOMB 150 UNIT, LIDOCAINE 2% (PF) 9... IO PRN (11:00)
[2023-09-06] MEDS: BALANCED SALT IRRIG SOLN COMB2 500 ML IRRIGATION ONE (11:12)
[2023-09-06] MEDS: MOXIFLOXACIN HCL 0.5% DROPS 3 ML BTL OP PRN (11:22)
[2023-09-06] MEDS: TIMOLOL 0.5% OPHTH DROPS 5 ML BTL OP PRN (11:22)
[2023-09-06] MEDS: TRYPAN BLUE 0.06% SYRINGE 0.5 ML SYRINGE INTRAOCULA ONE (11:23)
[2023-09-06] MEDS: BALANCED SALT IRRIG SOLN COMB2 500 ML INTRAOCULA ONE (11:23)
[2023-09-06] MEDS: HYALURONATE SODIUM INTRAOCULAR 1 EACH SYRINGE (10MG/ML) INTRAOCULA ONE (11:23)
[2023-09-06] MEDS: ACETYLCHOLINE CHLORIDE 10 MG/ML 2 ML KIT INTRAOCULA ONE (11:46)
[2023-09-06] MEDS: FLUORESCEIN STRIPS 1 MG STRIP LEFT EYE ONE (12:38)
[2023-09-06] MEDS: ATROPINE OPHTH SOLN 1% 5ML BTL OPHTHALMIC PRN (12:48)
[2023-09-06 14:29] VITALS: RESP 16
[2023-09-06 14:59] VITALS: BP 141/63; PULSE 63
--- NOTE | 2023-09-07 08:14 | P.OP ---
Date of Procedure: 09/06/23 Preoperative Diagnosis: Fuch dystrophy Postoperative Diagnosis: same - endothelial failure Procedure(s) Performed: DMEK Implants: none Anesthesia: regional Surgeon: Eddie Phillips Pathology: other (fluid and tissue remant from eye bank) Condition: stable Disposition: same day Indications for Procedure: blurry vision and corneal edema Operative Findings: Patient returned to recovery for an hour to allow for stabilizing of the transplant. At the slit lamp the tissue was determined to be in place and gas bubble was not too large. Therefore, patient was discharged to home in good condition.
--- NOTE | 2023-09-07 21:22 | OP ---
OPERATIVE REPORT DATE OF SERVICE : 09/06/2023 PROCEDURE: Descemet membrane and endothelial keratoplasty with corneal debridement of the left eye. PREOPERATIVE DIAGNOSES: 1. Endothelial failure, left eye. 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 ANESTHESIA: Regional with a retrobulbar anesthetic. ESTIMATED BLOOD LOSS: None. SPECIMENS TAKEN: The transport media as well as tissue which was transported with the donor tissue. 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 She has undergone several months of immunotherapy to reduce her sensitivity to foreign tissue being transplanted within her eye and currently is on Humira every 2 weeks to help control for her tendencies to reject corneal tissue. She is returning to remove the failed corneal tissue as well as regain her sight in this eye due to the ongoing corneal edema from the failed endothelium. DESCRIPTION OF PROCEDURE: After signing for the appropriate consent, the patient was brought to the operating room. There, she was placed under cardiac monitoring, prepped and draped in the usual sterile manner. She was approached from her left temporal side. Using an MVR blade, 4 paracenteses in the each of the diagonal quadrants were created into the anterior chamber. At the 3 o'clock position, a 2.5 mm keratome was used to create a temporal incision which was enlarged slightly to accommodate a Cristina tube device. Trypan blue was then instilled into the patient's eye and left to dwell for about 3 minutes. This was irrigated away with balanced salt solution. While waiting for the Trypan blue to develop on the corneal tissue, an 8 mm Beena trephination blade was placed gently on the patient's cornea to etch the 8 mm center zone and this was highlighted further with gentian madai over the tract created with a trephination blade. The trypan blue was then irrigated away with balanced salt solution and the anterior chamber was then stabilized with Amvisc. At this time, it was appreciated difficulty of seeing the anterior chamber details was too difficult through the existing cornea; therefore, a dry [place] sponge was used to remove all loose epithelial tissue to reveal a much clearer stromal bed to visualize the anterior chamber contents. Using a Salcedo Sinskey hook, the endothelial side of the patient's cornea was gently incised to the 8 mm martha placed on the epithelial side of the cornea. The Descemet membrane was easily removed in 1 total piece from the patient's cornea. All remaining viscoelastic was then aggressively was irrigated away and vacuumed using irrigation and aspiration on the anterior chamber. Attention was then directed to the donor tissue, which was identified as [id number]. The tissue was then placed on the back bench in balanced salt solution. The shipping container and its solution along with the other remaining piece of scleral tissue transported with the donor was sent for culture and sensitivity for any possible pathogens. Examination of the donor tissue which was transported in a Cristina tube revealed the tissue to be properly placed within the Cristina tube and an appropriate martha to help identify the stromal side of the tissue. A little bit of gentle irrigation allowed the tissue to be advanced nearer the tip of the Cristina tube placement device. This was brought over to the patient's eye and gently advanced into the anterior chamber, closing the temporal incision and trapping the donor tissue within the eye. A single 10-0 nylon suture in an X fashion was used to secure the temporal incision. Once the suture was trimmed, the depth of the anterior chamber was controlled along with various methods of tapping and sweeping the patient's cornea to orient the donor tissue with the correct side up as well as centrally positioned within the eye as possible. The initial presentation, the donor tissue presented itself upside down and subsequent to that took some extra time to reorient the tissue stromal side up during the course of the manipulation of this tissue. However, once accomplished, a small air bubble was then used to believe the donor tissue against the patient's cornea to confirm both orientation as well as adherence to the underside of the patient's cornea. Once this was generally in place using 20% SF6 gas was placed in the anterior chamber to further apply pressure against the donor tissue for approximately 20 minutes. Once this time it passed, the excess amount of gas and air in the anterior chamber were then largely replaced with balanced salt solution, so that the size of the remaining bubble was approximately no more than about 40% the volume of the anterior chamber itself. The patient then received 2 drops of 1% atropine, 2 drops of moxifloxacin, and 2 drops of 5% timolol. This was then followed by placement of a Prokera slim ring on the patient's eye and the temporal aspect of the eyelid was gently secured with a Tegaderm bandage. At this time, the patient was doing well and was then sent to recovery to lie flat for an additional hour prior to discharge. After that hours period of time, the patient was asked to sit upright and was examined at the slit lamp. It was determined at this stage of the game that the gas that remained in the eye was approximately 30% to 35% anterior chamber volume. The tissue appeared to remain against the patient's cornea and was generally adherent for the full 360 degrees. The patient was then given permission at this stage to be discharged to home with the instructions for postoperative care of the descemet membrane transplant itself. There were no noted complications from either of the procedures applied to the patient's eye. MMODL / IJN: [id number] /
== END 2023-09-06 14:59 | disposition home or self-care (01) ==
LOC: OR 08:09
PROVIDERS: ATTEND Ophthalmology
DX: H18.513 Endothelial corneal dystrophy, bilateral (principal); I10 Essential (primary) hypertension; E78.5 Hyperlipidemia, unspecified; M19.90 Unspecified osteoarthritis, unspecified site; F32.A Depression, unspecified; K58.9 Irritable bowel syndrome, unspecified; Z79.899 Other long term (current) drug therapy; Z98.890 Other specified postprocedural states
CPT/HCPCS: 65756; 87070; 87205; 87075; V2785; J2250; J3470; J2001; J3010; J2704; J2919

== ENCOUNTER → 2023-12-12 | Outpatient (CLI) | payer BC | LOC: CPPFTMAIN 11:21 | PROVIDERS: ATTEND Family Medicine | DX: J45.20 Mild intermittent asthma, uncomplicated | CPT/HCPCS: 94060; 94726; 94729 ==

== ENCOUNTER 2024-09-04 07:13 | Day surgery (SDC) | payer MEDICARE ==
[2024-09-04] MEDS: PILOCARPINE 2% OPHTH DROPS 15 ML BTL OP PRN (07:42)
[2024-09-04] MEDS: IV FLUID CONTINUATION 1,000 ML IV ONE (07:46)
[2024-09-04] MEDS: LACTATED RINGERS 1,000 ML IV SCH (08:05)
[2024-09-04 08:09] VITALS: TEMP 98.1
[2024-09-04] MEDS ORDERED: PROPOFOL 10 MG/ML 20 ML VIAL IV ONE (09:12)
[2024-09-04] MEDS ORDERED: methylPREDNISolone SOD SUCCI 125 MG/2 ML VIAL ONE (09:12)
[2024-09-04] MEDS: BALANCED SALT IRRIG SOLN COMB2 500 ML IRRIGATION ONE ×2 (09:24→14:04)
[2024-09-04] MEDS: MOXIFLOXACIN HCL 0.5% DROPS 3 ML BTL OP PRN (09:25)
[2024-09-04] MEDS: ATROPINE OPHTH SOLN 1% 5ML BTL OPHTHALMIC PRN (09:25)
[2024-09-04] MEDS: TIMOLOL 0.5% OPHTH DROPS 5 ML BTL OP PRN (09:25)
[2024-09-04] MEDS: BALANCED SALT IRRIG SOLN COMB2 15 ML IRRIG.SOLN OPHTHALMIC ONE (09:26)
[2024-09-04] MEDS: BUPIVACAINE (PF) 0.5% 4.5 ML, HYALURONIDASE, HUMAN RECOMB 150 UNIT, LIDOCAINE 2% (PF) 9... IO PRN (09:28)
[2024-09-04] MEDS: TRYPAN BLUE 0.06% SYRINGE 0.5 ML SYRINGE INTRAOCULA ONE (09:45)
[2024-09-04] MEDS: HYALURONATE SODIUM INTRAOCULAR 1 EACH SYRINGE (12MG/ML) INTRAOCULA ONE (10:06)
[2024-09-04] MEDS: ACETYLCHOLINE CHLORIDE 10 MG/ML 2 ML KIT INTRAOCULA ONE (10:34)
--- NOTE | 2024-09-04 11:37 | P.OP ---
Date of Procedure: 09/04/24 Preoperative Diagnosis: endothelial failure, rejection Postoperative Diagnosis: same Procedure(s) Performed: Descemet's stripping automated endothelial keratoplasty Implants: [id number] cornea donor tissue Anesthesia: MAC, regional Surgeon: Eddie Phillips Pathology: none sent Condition: stable Disposition: same day Indications for Procedure: endothelial failure Operative Findings: no complications
[2024-09-04] MEDS: ACETAMINOPHEN TAB 325 MG TAB PO STA (12:05)
[2024-09-04] MEDS ORDERED: MIDAZOLAM 2 MG/2 ML VIAL ONE (13:44)
[2024-09-04] MEDS: IV FLUID CONTINUATION 400 ML IV ONE (13:46)
[2024-09-04] MEDS: BALANCED SALT IRRIG SOLN COMB2 15 ML IRRIG.SOLN INTRAOCULA ONE (14:03)
[2024-09-04] MEDS: acetaZOLAMIDE 250 MG TAB PO ONE (14:36)
[2024-09-04 14:38] VITALS: BP 156/94; PULSE 76; RESP 18
--- NOTE | 2024-09-05 00:12 | OP ---
OPERATIVE REPORT DATE OF SERVICE : 09/04/2024 PROCEDURE: Descemet stripping automated endothelial keratoplasty of the left eye. 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 ANESTHESIA: A retrobulbar anesthetic with monitored anesthesia care. ESTIMATED BLOOD LOSS: Less than 5 mL. SPECIMEN TAKEN: None. NARRATIVE: After obtaining the appropriate consent, the patient was brought to the operating room. There, she was induced into twilight sedation with propofol and was administered a retrobulbar anesthetic consisting of 0.5% Marcaine, 1% lidocaine, both without epinephrine and 150 units of Wydase. Approximately, 5.5 mL of the mixture was injected into the retrobulbar space followed by a Honan balloon which was left on the eye for about 10 minutes. Once this was removed, she was then prepped and draped in the usual sterile manner. She was approached from her left temporal side and 2 paracenteses at the 5 o'clock and 8 o'clock position were created using an MVR blade. Trypan blue was instilled into the eye and allowed to dwell for 3 minutes. At the 3 o'clock position, conjunctival tissue was taken down to bare sclera and a frown-shaped incision was performed in the sclera approximately 2 mm posterior to the limbus. This was tunneled under with a onel crescent blade the width of which was approximately 4 to 4.5 mm in length. Once this temporal incision was created, the Trypan blue was irrigated from the anterior chamber and this was followed by stabilization of the anterior chamber with Amvisc. The central cornea was marked with a Sinskey hook and an 8 mm Beena Trephine was used to outline a martha on the cornea, which was enhanced with gentian madai khan. The temporal incision was enlarged with a 2.8 mm keratome and using a Salcedo-Sinskey hook, the 8 mm area previously designated on the anterior surface of the cornea was outlined and the endothelial tissue from within this area was removed in total. The corneal tissue identified as [id number], [id number] cornea in Optisol-GS preloaded on an EndoGlide device was brought to the back table. The tissue was gently adjusted with the grabbing forceps and the temporal incision was modified to allow entry of the EndoGlide into the temporal incision of the patient's eye. Once the EndoGlide was into the anterior chamber, the prepared DSAEK tissue was then deployed within the anterior chamber of the eye. The temporal incision was closed with 3 interrupted 10-0 nylon sutures to create a watertight anterior chamber. A small amount of fluid was introduced into the anterior chamber to facilitate unfold the remaining unfolding of the donor tissue. Once the tissue had correctly deployed, minor adjustment to center the tissue was performed using gentle tapping on the anterior corneal surface. Once this was confirmed centered, a small air bubble was placed under the center of the donor tissue and buoyed into place. An additional 10-0 nylon suture was used to maintain airtight integrity during this phase of the procedure from the 5 o'clock position, which persisted in allowing the air from the anterior chamber to leave. The eye was then pressurized with additional sulfur hexafluoride SF6 and the pressure was maintained on the eye for 15 minutes. Partial evacuation of the air bubble from the anterior chamber was performed with replacement of balanced salt solution. The patient then received 2 drops of 0.5% timolol, 2 drops of moxifloxacin, and 2 drops of 1% atropine. The eye was shielded. The patient was asked to remain supine and she was escorted to phase 2 recovery where she remained for approximately 1 hour. At one-hour interval, she was examined at a slit-lamp in an upright position and it was determined that the air bubble had moved posterior to the iris, which would create a potential for aqueous misdirection in the eye. Therefore, the patient was then brought back to the operating room with additional manipulation to remove the air from the posterior aspect of the iris or the posterior chamber of the eye and replaced with aqueous and then the eye was reinflated with additional air and SF6 with good separation of the iris from the corneal surface. She received an additional 2 drops of 0.5% moxifloxacin and was also given 500 mg of acetazolamide. Additionally, after the placement of the donor tissue during the initial part of the procedure, the patient received 125 mg of Solu-Medrol intravenously. There were no additional difficulties encountered during the course of the procedure. She was once again returned to recovery and was discharged from the recovery area in good condition. MMODL / IJN: [id number] /
== END 2024-09-04 14:54 | disposition home or self-care (01) ==
LOC: OR 07:13
PROVIDERS: ATTEND Ophthalmology
DX: H18.512 Endothelial corneal dystrophy, left eye (principal); H18.513 Endothelial corneal dystrophy, bilateral; H04.123 Dry eye syndrome of bilateral lacrimal glands; H20.12 Chronic iridocyclitis, left eye; H52.13 Myopia, bilateral; H52.221 Regular astigmatism, right eye; T86.8412 Corneal transplant failure, left eye; J45.909 Unspecified asthma, uncomplicated; E07.9 Disorder of thyroid, unspecified; G43.909 Migraine, unspecified, not intractable, without status migrainosus; Y83.0 Surgical operation with transplant of whole organ as the cause of abnormal reaction of the patient, or of later complication, without mention of misadventure at the time of the procedure; Z94.7 Corneal transplant status; Z96.1 Presence of intraocular lens; Z98.890 Other specified postprocedural states; Z79.890 Hormone replacement therapy; Z79.899 Other long term (current) drug therapy
CPT/HCPCS: 87070; 87205; 87075; 65756; V2785; J2250; J3470; J2003; J2704; J0665; J2919